=== PATIENT | male | born 1955 | race Caucasian/White ===

== ENCOUNTER 2025-05-05 11:32 | Outpatient (OUT) | payer MEDICARE, SELFPAY ==
--- OUTSIDE RECORDS SUMMARY | 2025-05-05 11:47 | XMS_ITS | Encounter Summary ---
Author Organization [facility] Address [address] [place] [address] Care Team Providers Care Tapering Machine Operator Name Role Phone Arsalan Díaz MD Primary Care Provider [phone] Maricarmen Jj APPLE SOLUTIONS CONSULTANT Unavailable [phone] Encounter Details Date Type Department Care Team (Late st Contact Info) Description 02/19/2024 Abstract [facility] [address] [place] [address] Arsalan Díaz MD [address] [place] [address] Social History Tobacco Use Types Packs/Day Years Used Date Smoking Tobacco: Every Day Cigars Passive Smoke Exposure: Never Smokeless Tobacco: Current Comments:Start smoking : 20 years ago Alcohol Use Standard Drinks/Week Comments Not Currently 0 (1 standard drink = 0.6 oz pure alcohol) caffeine intake : more than 4 cups per day Humiliation, Afraid, Rape, and Kick questionnair e Answer Date Recorded Within the last year, have y ou been afraid of your partner or ex-partner? No 06/11/2023 Within the last year, have y ou been humiliated or emotionally abused in other ways by your partner or ex-partner? No Within the last year, have y ou been kicked, hit, slapped, or otherwise physically hurt by your partner or ex-partner? No 06/11/2023 Within the last year, have y ou been raped or forced to have any kind of sexual activity by your partner or ex-partner? No 06/11/2023 Social Connection and Isolat ion Panel [NHANES] Answer Date Recorded In a typical week, how many times do you talk on the phone with family, friends, or neighbors? More than three times a week 06/11/2023 How often do you get togethe r with friends or relatives? More than three times a week 06/11/2023 How often do you attend chur or orthodoxy services? Patient declined 06/11/2023 Do you belong to any clubs o r organizations such as yazdanism groups, unions, fraSabrix or athletic groups, or school groups? No 06/11/2023 How often do you attend meet ings of the clubs or organizations you belong to? Patient declined 06/11/2023 Are you , , di vorced, , never , or living with a partner? 06/11/2023 AUDIT-C Answer Date Recorded Q1: How often do you have a drink containing alc ohol? Monthly or less 06/11/2023 Q2: How many drinks containi ng alcohol do you have on a typical day when you are drinking? 1 or 2 06/11/2023 Q3: How often do you have si x or more drinks on one occasion? Never 06/11/2023 Overall Financial Resource Strain (CARDIA) Answe r Date Recorded How hard is it for you to pa y for the very basics like food, housing, medical care, and heating? Not hard at all 06/11/2023 PHQ-2 Answer Date Recorded Patient Health Questionnaire-2 Score 0 05/09/2023 [facility] of Occupat ionmd Health - Occupational Stress Questionnaire Answer Date Recorded Do you feel stress - tense, restless, nervous, or anxious, or unable to sleep at night because your mind is troubled all the time - these days? Not at all 06/11/2023 Exercise Vital Sign Answer Date Recorde d On average, how many days pe r week do you engage in moderate to strenuous exercise (like a brisk walk)? Patient declined On average, how many minutes do you engage in exercise at this level? Patient declined 06/11/2023 Hunger Vital Sign Answer Date Recorded Worried About Running Out of Food in the Last Ye ar Not on file 06/11/2023 Within the past 12 months, t he food you bought just didn't last and you didn't have money to get more. Never true 06/11/2023 PRAPARE - Transportation Answer Date Re corded In the past 12 months, has l ack of transportation kept you from medical appointments or from getting medications? No 06/01 In the past 12 months, has l ack of transportation kept you from meetings, work, or from getting things needed for daily living? No 06/11/2023 Housing Stability Vital Sign Answer Jacek e Recorded In the last 12 months, was t here a time when you were not able to pay the mortgage or rent on time? No 06/11/2023 In the last 12 months, how many places have you lived? 1 06/11/2023 In the last 12 months, was t here a time when you did not have a steady place to sleep or slept in a jail (including now)? No 06/11/2023 Sex and Gender Information Value Date Recorded Sex Assigned at Male 05/08/2023 12:49 PM EDT Legal Sex Male 6:37 PM EDT Gender Identity Male 02/13/2023 6:37 PM EDT Sexual Orientation Straight 05/08/2023 12 :49 PM EDT documented as of this encounter Plan of Treatment Upcoming Encounters Date Type Department Care Team (Late st Contact Info) Description 05/18/2025 10:45 AM EDT Office Visit [facility] [address] [place] [address] Jared Linda DO [address] [place] [address] documented as of this encounter Visit Diagnoses Not on filedocumented in this encounter Care Teams Tapering Machine Operator Relationship Specialty Start Date End Date Arsalan Díaz MD [address] [place] [address] PCP - General Family Medicine 05/08/23 Maricarmen Jj APPLE SOLUTIONS CONSULTANT [address] [place] [address] Nurse Practitioner Family Medicine 04/14/25 documented as of this encounter
--- OUTSIDE RECORDS SUMMARY | 2025-05-05 11:47 | XMS_ITS | Encounter Summary ---
Author Organization [facility] Address [address] [place] [address] Care Team Providers Care Cushion Builder Name Role Phone Arsalan Díaz MD Primary Care Provider [phone] Maricarmen Jj NP Unavailable Reason for Visit * Reason Comments Med Refill Encounter Details Date Type Department Care Team (Late st Contact Info) Description 02/15/2025 Refill [facility] [address] [place] [phone] Shea Younger NP [address] [place] [address] Mixed hyperlipidemia (CMS/HCC) ; Generalized anxiety disorder (CMS/HCC) Social History Tobacco Use Types Packs/Day Years Used Date Smoking Tobacco: Some Days Cigars Passive Smoke Exposure: Never Smokeless Tobacco: Former Comments:Start smoking : 20 years ago Alcohol Use Standard Drinks/Week Comments Not Currently 1 (1 standard drink = 0.6 oz pure alcohol) caffeine intake : more than 4 cups per day B1300 Health Literacy Answer Date Recor ded How often do you need to hav e someone help you when you read instructions, pamphlets, or other written material from your doctor or pharmacy? Never 08/17/2024 Humiliation, Afraid, Rape, and Kick questionnair e [...] or ex-partner? No 06/11/2023 Social Connection and Isolation Panel [NHANES] A nswer Date Recorded In a typical week, how many times do you talk on the phone with family, friends, or neighbors? Three times a week 08/17/2024 How often do you get togethe r with friends or relatives? Three times a week 08/17/2024 How often do you attend chur or holiness services? Patient declined 08/17/2024 Do you belong to any clubs o r organizations such as adventist groups, unions, fraternal or athletic groups, or school groups? No 08/17/2024 How often do you attend meet ings of the clubs or organizations you belong to? Never 08/17/2024 Are you , , di vorced, , never , or living with a partner? 08/17/2024 AUDIT-C Answer Date Recorded Q1: How often do you have a drink containing alc ohol? 2-3 times a week 08/17/2024 Q2: How many drinks containi ng alcohol do you have on a typical day when you are drinking? 1 or 2 08/17/2024 Q3: How often do you have si x or more drinks on one occasion? Never 08/17/2024 Overall Financial Resource Strain (CARDIA) Answe r Date Recorded How hard is it for you to pa y for the very basics like food, housing, medical care, and heating? Not hard at all 08/17/2024 PHQ-2 Answer Date Recorded Patient Health Questionnaire-2 Score 0 08/18/2024 [facility] [place] of Occupat ional Health - Occupational Stress Questionnaire Answer Date Recorded Do you feel stress - tense, restless, nervous, or anxious, or unable to sleep at night because your mind is troubled all the time - these days? To some extent 08/17/2024 Exercise Vital Sign Answer Date Recorde d On average, how many days pe r week do you engage in moderate to strenuous exercise (like a brisk walk)? 3 days 08/17/2024 On average, how many minutes do you engage in exercise at this level? 60 min 08/17/2024 Hunger Vital Sign Answer Date Recorded Within the past 12 months, y ou worried that your food would run out before you got the money to buy more. Never true 08/17/20 24 Within the past 12 months, t he food you bought just didn't last and you didn't have money to get more. Never true 08/17/2024 PRAPARE - Transportation Answer Date Re corded In the past 12 months, has l ack of transportation kept you from medical appointments or from getting medications? No 08/02 In the past 12 months, has l ack of transportation kept you from meetings, work, or from getting things needed for daily living? No 08/17/2024 Housing Stability Vital Sign Answer Jacek e [...] place to sleep or slept in a retirement (including now)? No 06/11/2023 Housing Stability Vital Sign Answer Jacek e Recorded In the last 12 months, was t here a time when you were not able to pay the mortgage or rent on time? No 08/17/2024 Number of Times Moved in the Last Year Not on fi le 08/17/2024 At any time in the past 12 m [facility], were you homeless or living in a retirement (including now)? No 08/17/2024 Sex and Gender Information Value Date Recorded Sex Assigned at Male 05/08/2023 12:49 PM EDT Legal Sex Male 6:37 PM EDT Gender Identity Male 02/13/2023 6:37 PM EDT Sexual Orientation Straight 05/08/2023 12 :49 PM EDT documented as of this encounter Miscellaneous Notes * Telephone Encounter - AME VÁSQUEZ - 02/16/2025 8:17 AM EDT refused documented in this encounter Plan of Treatment Upcoming Encounters Date Type Department Care Team (Late st Contact Info) Description 05/18/2025 10:45 AM EDT Office Visit [facility] [address] [place] [address] Jared Linda, [address] [place] [address] documented as of this encounter Goals Goal Patient Goal Type Associated Problems Recent Progress Patient-Stated? Author Help patient manage antidepressant medication Care Plan Patient on antidepressant monitoring plan No Karely Mandujano MA Baseline PHQ-9 Care Plan Baseline PHQ-9 No Karely Mandujano MA documented as of this encounter Visit Diagnoses Diagnosis Mixed hyperlipidemia (CMS/HCC) Mixed hyperlipidemia Generalized anxiety disorder (CMS/HCC) Generalized anxiety disorder documented in this encounter Additional Health Concerns Active Problems Noted Date Diagnosed Date Patient on antidepressant monitoring plan 2023 Baseline PHQ-9 03/02/2024 Assessment Noted Time PHQ-9 Depression Total Score: 0 03/02/20 24 11:00 AM EDT documented as of this encounter Care Teams Cushion Builder Relationship Specialty Start Date End Date Arsalan Díaz MD [address] [place] [address] PCP - General Family Medicine 05/08/23 Maricarmen Jj NP [address] [place] [address] Nurse Practitioner Family Medicine 04/14/25 documented as of this encounter
--- OUTSIDE RECORDS SUMMARY | 2025-05-05 11:47 | XMS_ITS | Encounter Summary ---
Author Organization [facility] Address [address] [place] [address] Care Team Providers Care Management Assistant Name Role Phone Arsalan Díaz MD Primary Care Provider [phone] Maricarmen Jj UI DESIGNER Unavailable [phone] Encounter Details Date Type Department Care Team (Late st Contact Info) Description 04/19/2025 Abstract [facility] [address] [place] [address] Maricarmen Jj, RAIMUNDO [address] [place] [address] Social History Tobacco Use Types Packs/Day Years Used Date Smoking Tobacco: Former Cigars Q uit: 05/20/2024 Passive Smoke Exposure: Never Smokeless Tobacco: Former Comments:Start smoking : 20 years ago Alcohol Use Standard Drinks/Week Comments Not Currently 4 (1 standard drink = 0.6 oz pure alcohol) caffeine intake : more than 4 cups per day, Patient reports drinking bourbon 4x a week B1300 Health Literacy Answer Date Recor ded [...] week 08/17/2024 How often do you attend [facility] or confucianist services? Patient declined 08/17/2024 Do you belong to any clubs o r organizations such as congregation groups, unions, fraternal or athletic groups, or school groups? No 08/17/2024 How often do you attend meet ings of the clubs or organizations you belong to? Never 08/17/2024 Are you , , di vorced, , never , or living with a partner? 08/17/2024 AUDIT-C Answer Date Recorded Q1: How often do you have a drink containing alcohol? 4 or more times a week 04/19/2025 Q2: How many drinks containi ng alcohol do you have on a typical day when you are drinking? 1 or 2 Q3: How often do you have si x or more drinks on one occasion? Never 04/19/2025 Overall Financial Resource Strain (CARDIA) Answe r Date Recorded How hard is it for you to pa y for the very basics like food, housing, medical care, and heating? Not hard at all 08/17/2024 PHQ-2 Answer Date Recorded Patient Health Questionnaire-2 Score 0 04/19/2025 [facility] of Occupat ional Health - Occupational Stress [...] place to sleep or slept in a intermediate (including now)? No 06/11/2023 Housing Stability Vital Sign Answer Jacek e Recorded In the last 12 months, was t here a time when you were not able to pay the mortgage or rent on time? No 08/17/2024 Number of Times Moved in the Last Year Not on fi le 08/17/2024 At any time in the past 12 m [facility], were you homeless or living in a intermediate (including now)? No 08/17/2024 Sex and Gender Information Value Date Recorded Sex Assigned at Male 05/08/2023 12:49 PM EDT Legal Sex Male 6:37 PM EDT Gender Identity Male 02/13/2023 6:37 PM EDT Sexual Orientation Straight 05/08/2023 12 :49 PM EDT documented as of this encounter Functional Status * Audit-C Score Answer Date of Assessment Author 4 04/19/2025 10:30 AM EDT Roseanne Henry MA * Question Answer Date of Assessment Author Q1: How often do you have a drink containing alcohol? 4 or more times a week 04/19/2025 10:30 AM Roseanne Coyne MA Q2: How many drinks containing alcohol do you have on a typical day when you are drinking? 1 or 2 04/19/2025 10:30 AM Roseanne Coyne MA Q3: How often do you have six or more drinks on one occasion? Never 04/19/2025 10:30 AM Roseanne Coyne MA * Over the past 2 weeks, how often have you been bothered by any of the following problems? Question Answer Date of Assessment Author Little interest or pleasure in doing things Not at all 04/19/2025 10:30 AM Roseanne Coyne MA Feeling down, depressed, or hopeless Not at all 04/19/2025 10:30 AM Gabby Coyne MA Patient Health Questionnaire-2 Score 0 04/19/2025 10:30 AM Pk Coyne MA * Question Answer Date of Assessment Author Trouble falling or staying asleep, or sleeping too much Not at all 04/19/2025 10:30 AM Roseanne Montiel MA Feeling tired or having little energy Not at all 04/19/2025 10:30 AM Gabby Coyne MA Poor appetite or overeating Not at all 04/19/2025 10 :30 AM Roseanne Coyne MA Feeling bad about yourself - or that you are a failure or have let yourself or your family down Not at all 04/19/2025 10:30 AM Gabby Coyne MA Trouble concentrating on things, such as reading the newspaper or watching television Not at all 04/19/2025 10:30 AM Gabby Coyne MA Moving or speaking so slowly that other people could have noticed? Or the opposite - being so fidgety or restless that you have been moving around a lot more than usual. Not at all 04/19/2025 10:30 AM EDT Roseanne Schuler MA Thoughts that you would be better off or hurting yourself in some way Not at all 04/19/2025 10:30 AM EDT Karlee Nielsen MA Patient Health Questionnaire-9 Score 0 04/19/2025 10:30 AM EDT Pk Nielsen MA documented as of this encounter Plan of Treatment Upcoming Encounters Date Type Department Care Team (Late st Contact Info) Description 05/18/2025 10:45 AM EDT Office Visit [facility] [address] [place] [address] Jared Linda DO [address] [place] [address] documented as of this encounter Goals Goal Patient Goal Type Associated Problems Recent Progress Patient-Stated? Author Help patient manage antidepressant medication Care Plan Patient on antidepressant monitoring plan No Karely Mandujano MA Baseline PHQ-9 Care Plan Baseline PHQ-9 Karely Callaway MA documented as of this encounter Visit Diagnoses Not on filedocumented in this encounter Additional Health Concerns Active Problems Noted Date Diagnosed Date Patient on antidepressant monitoring plan 2023 Baseline PHQ-9 03/02/2024 Assessment Noted Time PHQ-9 Depression Total Score: 0 04/19/20 10:30 AM EDT documented as of this encounter Care Teams Management Assistant Relationship Specialty Start Date End Date Arsalan Díaz MD [address] [place] [address] PCP - General Family Medicine 05/08/23 Maricarmen Jj NP [address] [place] [address] Nurse Practitioner Family Medicine 04/14/25 documented as of this encounter
--- OUTSIDE RECORDS SUMMARY | 2025-05-05 11:47 | XMS_ITS | Patient Health Record ---
Author Organization [facility] Address [address] [place] [address] Care Team Providers Care Buckle Attacher Name Role Phone Arsalan Díaz Primary Care Provider Unavailabl e Allergies No Known Allergies Reason For Referral No Information Medications Medication SIG (Take, Route, Frequency, Duration) Notes Start Date End Date Status Paxil Active Immunizations Vaccine Route Administration Date Status Comme nts Flu Vaccine (Given in Past) Unspecified Unknown 06/03/2023 Administered Pneumonia ( Given in the Pas t) Unspecified Unknown 06/03/2023 Administered Social History Tobacco Use: Social History Observation Description Date Details (start date - stop date) Unknown Tobacco Use Question Answer Notes Are you a Uses tobacco in other forms Additional Findings: Tobacco User Cigar smoker Problems Problem Type SNOMED Code ICD Code Onset Dates Problem Status W/U Status Risk Notes Problem 28138632 Cigar smoker (F17.290) Active confirmed Problem 356433770744186 Obesity (BMI 30.0-34.9) (E66.9) Active confirmed Problem [id number] BMI 32.0-32.9,adult (Z68.32) Active confirmed Problem Vestibular disorder, unspecified laterality (H81.90) Active confirmed Plan Of Treatment No Information Insurance Providers Payer Name Payer Address Payer Phone Subscriber Number Group Number Insured Name Patient Relationship to Insured Coverage Start Date Coverage End Date [facility] [address] [address] [place] [phone] [id number] TRINA RENDON Self - patient is the insured Medical (General) History Medical History History ICD Code Vestibular disorder, unspecified lateral ity H81.90 Surgical History Surgery Date(Month/Year) appendectomy 12/1978 Hospitalization History Reason Date(Month/Year) surgeries
--- OUTSIDE RECORDS SUMMARY | 2025-05-05 11:47 | XMS_ITS | Encounter Summary ---
Author Organization [facility] Address [address] [place] [address] Care Team Providers Care Ground Crewman Name Role Phone Arsalan Díaz MD Primary Care Provider [phone] Maricarmen Jj NET DEVELOPMENT MANAGER Unavailable [phone] Encounter Details Date Type Department Care Team (Late st Contact Info) Description 04/02/2025 Abstract [facility] [address] [place] [phone] Arsalan Díaz MD [address] [place] [address] Social History Tobacco Use Types Packs/Day Years [...] How often do you attend chur or tenriism services? Patient declined 08/17/2024 Do you belong to any clubs o r organizations such as taoism groups, unions, fraKeoghs or athletic groups, or school groups? No [...] Recorded Patient Health Questionnaire-2 Score 0 08/18/2024 [facility] of Occupat ional Health - Occupational Stress [...] place to sleep or slept in a usp (including now)? No 06/11/2023 Housing Stability Vital Sign Answer Jacek e Recorded In the last 12 months, was t here a time when you were not able to pay the mortgage or rent on time? No 08/17/2024 Number of Times Moved in the Last Year Not on fi le 08/17/2024 At any time in the past 12 m [facility], were you homeless or living in a usp (including now)? No 08/17/2024 Sex and Gender [...] AM EDT Office Visit [facility] [address] [place] [address] Jared Linda, DO [address] [place] [address] documented as of this encounter Goals Goal [...] documented as of this encounter Care Teams Ground Crewman Relationship Specialty Start Date End Date Arsalan Díaz MD [address] [place] [address] PCP - General Family Medicine 05/08/23 Maricarmen Jj NP [address] [place] [address] Nurse Practitioner Family Medicine 04/14/25 documented as of this encounter
--- OUTSIDE RECORDS SUMMARY | 2025-05-05 11:47 | XMS_ITS | Encounter Summary ---
Author Organization [facility] Address [address] [place] [address] Care Team Providers Care Press Tender Star Signal Name Role Phone Arsalan Díaz MD Primary Care Provider [phone] Maricarmen Jj DIRECTOR OF COMMUNICATIONS Unavailable Reason for Visit * Reason Comments Med Refill Encounter Details Date Type Department Care Team (Late st Contact Info) Description 02/15/2025 Refill [facility] [address] [place] [address] Arsalan Díaz MD [address] [place] [address] Vertigo of central origin; Dizziness and giddiness Social History Tobacco Use Types Packs/Day Years [...] How often do you attend chur or shinto services? Patient declined 08/17/2024 Do you belong to any clubs o r organizations such as latter day groups, unions, fraternal or athletic groups, or [...] Recorded Patient Health Questionnaire-2 Score 0 08/18/2024 [facility] of Occupat ional Health - Occupational Stress [...] place to sleep or slept in a nursing home (including now)? No 06/11/2023 Housing Stability Vital Sign Answer Jacek e Recorded In the last 12 months, was t here a time when you were not able to pay the mortgage or rent on time? No 08/17/2024 Number of Times Moved in the Last Year Not on fi le 08/17/2024 At any time in the past 12 m [facility], were you homeless or living in a nursing home (including now)? No 08/17/2024 Sex and Gender Information Value Date Recorded Sex Assigned at Male 05/08/2023 12:49 PM EDT Legal Sex Male 6:37 PM EDT Gender Identity Male 02/13/2023 6:37 PM EDT Sexual Orientation Straight 05/08/2023 12 :49 PM EDT documented as of this encounter Miscellaneous Notes * Telephone Encounter - AME VÁSQUEZ - 02/15/2025 4:10 PM EDT Refills BILLY NOV documented in this encounter Plan of Treatment Upcoming Encounters Date Type Department Care Team (Late st Contact Info) Description 05/18/2025 10:45 AM EDT Office Visit [facility] [address] [place] [address] Jared Linda, [address] [place] [place] [address] documented as of this encounter Goals Goal Patient Goal Type Associated Problems Recent Progress Patient-Stated? Author Help patient manage antidepressant medication Care Plan Patient on antidepressant monitoring plan No Karely Mandujano MA Baseline PHQ-9 Care Plan Baseline PHQ-9 No Karely Mandujano MA documented as of this encounter Visit Diagnoses Diagnosis Vertigo of central origin Dizziness and giddiness documented in this encounter Additional Health Concerns Active Problems Noted Date Diagnosed Date Patient on antidepressant monitoring plan 2023 Baseline PHQ-9 03/02/2024 Assessment Noted Time PHQ-9 Depression Total Score: 0 03/02/20 24 11:00 AM EDT documented as of this encounter Care Teams Press Tender Star Signal Relationship Specialty Start Date End Date Arsalan Díaz MD [address] [place] [address] PCP - General Family Medicine 05/08/23 Maricarmen Jj NP [address] [place] [address] Nurse Practitioner Family Medicine 04/14/25 documented as of this encounter
--- OUTSIDE RECORDS SUMMARY | 2025-05-05 11:48 | XMS_ITS | Clinical Summary ---
Author Organization [facility] Address [address] [place] [address] Care Team Providers Care Installer Molding And Trim Name Role Phone Arsalan Díaz MD Primary Care Provider [phone] Jared Linda DO Unavailable [phone] Allergies No known active allergies Medications atorvastatin 20 MG Tab tablet Take 1 tablet by mouth daily. 7 Active amitriptyline 10 MG Tab tablet Take 20 mg by mouth daily. Active magnesium oxide 400 MG TabIndications:V estibular migraine Take 1 tablet by mouth 2 times daily. For migraine prevention. 60 tablet 11 8 Active Desvenlafaxine Succinate 50 MG Tab SR 24 HRIndications:In tractable chronic migraine without aura and without status migrainosus Take 1 tablet by mouth daily. 90 tablet 3 8 Active Active Problems Problem Noted Date Diagnosed Date Headache, new daily persistent (NDPH) 12/31/2017 Weakness of neck 12/31/2017 Poor posture 12/31/2017 Obesity: body mass index of 30.0-34.9 12/11/2017 Vestibular migraine 12/11/2017 Dizzy spells 12/11/2017 Migraine aura without headache (migraine equival ents) 12/11/2017 Intractable chronic migraine without aura and without status migrainosus 12/11/2017 Social History Tobacco Use Types Packs/Day Years Used Date Smoking Tobacco: Never Assessed Sex and Gender Information Value Date Recorded Sex Assigned at Not on file Legal Sex Male 11:16 AM EDT Gender Identity Male 09/19/2017 11:22 AM EDT Sexual Orientation Not on file Last Filed Vital Signs Vital Sign Reading Time Taken Comments Blood Pressure 127/83 09/12/2018 3:46 PM EDT Pulse 77 09/12/2018 3:46 PM EDT Temperature - - Respiratory Rate - - Oxygen Saturation - - Inhaled Oxygen Concentration - - Weight 100.8 kg (222 lb 3.2 oz) 09/12/2018 3:46 PM EDT Height 182.2 cm (5' 11.75 ) 09/12/2018 3:46 PM E DT Verbal Body Mass Index 30.35 09/12/2018 3:46 PM EDT Plan of Treatment Health Maintenance Due Date Last Done Comments HEPATITIS C VIRUS SCREENING 1955 TETANUS 1955 TDAP (ADULT) 1974 LIPID SCREENING 1995 COLORECTAL CANCER SCREENING DISCUSSION 2000 ZOSTER (SHINGLES) VACCINE (1 of 2) 2005 PROSTATE CANCER SCREENING DISCUSSION 2010 PNEUMOCOCCAL VACCINE SERIES (2 of 2 - PPSV23) 07/07/2019 07/07/2018 ABDOMINAL AORTIC ANEURYSM HIGH RISK SCREEN 2020 COVID-19 VACCINE (2023-2 5 season) 2024 INFLUENZA VACCINE (Season Ended) 2025 09/16/2017, 11/02/2015, 11/02/2015 RSV VACCINE (1 - 1-dose 75+ series) 2030 HEP B VACCINE Aged Out No longer elig ible based on patient's age to complete this topic Insurance MEDICARE [employer] PPO MEDICARE [employer] PPO Care Teams Installer Molding And Trim Relationship Specialty Start Date End Date Arsalan Díaz MD [address] [place] [address] PCP - General Family Medicine 09/21/17 Jared Linda DO [address] [place] [address] Consulting Physician Otolaryngology 12/11/17
--- OUTSIDE RECORDS SUMMARY | 2025-05-05 11:48 | XMS_ITS | Encounter Summary ---
Author Organization [facility] Address [address] [place] [address] Care Team Providers Care Platen Press Operator Apprentice Name Role Phone Arsalan Díaz MD Primary Care Provider [phone] Maricarmen Jj ELECTRICAL LOGGER Unavailable Encounter Details Date Type Department Care Team (Late st Contact Info) Description 10/29/2023 Orders Only [facility] [address] [place] [address] Arsalan Díaz MD [address] [place] [address] Social History Tobacco Use Types Packs/Day Years [...] How often do you attend chur or yazdanism services? Patient declined 06/11/2023 Do you belong to any clubs o r organizations such as mandaeism groups, unions, fraGraceway Ph[employer] or athletic groups, or school groups? No [...] Recorded Patient Health Questionnaire-2 Score 0 05/09/2023 [facility] - Occupational Stress Questionnaire Answer Date [...] in a retirement (including now)? No 06/11/2023 Sex and Gender [...] Office Visit [facility] [address] [place] [address] Jared Linda DO [address] [place] [place] [address] documented as of this encounter Procedures Procedure Name Priority Date/Time Associated Diagnosis Comments CBC WITH AUTO DIFFERENTIAL Routine 10/28/2023 12:29 PM EST documented in this encounter Results * CBC auto differential (10/28/2023 12:29 PM EST) Blood Venous blood specimen / Unknown us Arsalan Díaz MD LAB BLOOD ORDERABLES Final Res ult documented in this encounter Visit Diagnoses Not on filedocumented in this encounter Care Teams Platen Press Operator Apprentice Relationship Specialty Start Date End Date Arsalan Díaz MD [address] [place] [address] PCP - General Family Medicine 05/08/23 Maricarmen Jj NP [address] [place] [address] Nurse Practitioner Family Medicine 04/14/25 documented as of this encounter
--- OUTSIDE RECORDS SUMMARY | 2025-05-05 11:48 | XMS_ITS | Encounter Summary ---
Author Organization [facility] Address [address] [facility] [place] [address] Care Team Providers Care Industrial Technology Teacher Name Role Phone Arsalan Díaz MD Primary Care Provider [phone] Maricarmen Jj SYSTEMS OPERATOR Unavailable [phone] Reason for Visit * Reason Comments Med Refill Encounter Details Date Type Department Care Team (Late st Contact Info) Description 05/18/2023 Refill [facility] [address] [place] [address] Shea Younger NP [address] [place] [address] Social History Tobacco Use Types Packs/Day Years Used Date Smoking Tobacco: Never Passive Smoke Exposure: Never Smokeless Tobacco: Never Alcohol Use Standard Drinks/Week Comments Yes 0 (1 standard drink = 0.6 oz pur e alcohol) PHQ-2 Answer Date Recorded Patient Health Questionnaire-2 Score 0 05/09/2023 Sex and Gender Information Value Date Recorded Sex Assigned at Male 05/08/2023 12:49 PM EDT Legal Sex Male 6:37 PM EDT Gender Identity Male 02/13/2023 6:37 PM EDT Sexual Orientation Straight 05/08/2023 12 :49 PM EDT COVID-19 Exposure Response Date Recorded In the last 10 days, have yo u been in contact with someone who was confirmed or suspected to have Coronavirus/COVID-19? No / Unsure 05/09/2023 8:55 AM EDT documented as of this encounter Plan of Treatment Upcoming Encounters Date Type Department Care Team (Late st Contact Info) Description 05/18/2025 10:45 AM EDT Office Visit [facility] [address] [place] [address] Jared Linda, [address] [place] [address] documented as of this encounter Visit Diagnoses Not on filedocumented in this encounter Care Teams Industrial Technology Teacher Relationship Specialty Start Date End Date Arsalan Díaz MD [address] [place] [address] PCP - General Family Medicine 05/08/23 Maricarmen Jj SYSTEMS OPERATOR [address] [place] [address] Nurse Practitioner Family Medicine 04/14/25 documented as of this encounter
--- OUTSIDE RECORDS SUMMARY | 2025-05-05 11:48 | XMS_ITS | Encounter Summary ---
Author Organization [facility] Address [address] [place] [address] Phone Care Team Providers Care Certified Prosthetist/Orthotist Name Role Phone Arsalan Díaz MD Primary Care Provider [phone] Encounter Details Date Type Department Care Team (Late st Contact Info) Description 10/20/2023 Scanned Document [place] [address] [place] [phone] Scanning, Generic Provider Social History Tobacco Use Types Packs/Day Years Used Date Smoking Tobacco: Never Assessed Sex and Gender Information Value Date Recorded Sex Assigned at Not on file Legal Sex Male 1:23 PM EDT Gender Identity Not on file Sexual Orientation Not on file documented as of this encounter Plan of Treatment Scheduled Orders Name Type Priority Associated Diagnoses Orde r Schedule ULTRASOUND - ONBASE SCAN Imaging Ordered: 10/20/2023 documented as of this encounter Visit Diagnoses Not on filedocumented in this encounter Care Teams Certified Prosthetist/Orthotist Relationship Specialty Start Date End Date Arsalan Díaz MD [address] [place] [address] PCP - General 07/22/23 documented as of this encounter
--- OUTSIDE RECORDS SUMMARY | 2025-05-05 11:48 | XMS_ITS | Clinical Summary ---
Author Organization [facility] Address [address] [place] [address] Phone Care Team Providers Care Housekeeper Nanny Name Role Phone Arsalan Díaz MD Primary Care Provider Allergies Active Allergy Reactions Criticality Noted Date Comments Fentanyl Hallucinations 01/10/2024 Medications atorvastatin (Lipitor) 40 mg tablet Take 1 tablet (40 mg) by mouth once daily. Active diazePAM (Valium) 5 mg tablet Take 1 tablet (5 mg) by mouth every 8 hours if needed for anxiety. As needed/direc gerard. Active PARoxetine (Paxil) 40 mg tablet Take 1 tablet (40 mg) by mouth once daily in the morning. Active tamsulosin (Flomax) 0.4 mg 24 hr capsule Take 1 capsule (0.4 mg) by mouth once daily. Active Active Problems Problem Noted Date Diagnosed Date Hyperlipidemia 12/12/2023 LBBB (left bundle branch block) 12/12/2023 Cigar smoker 12/12/2023 Social History Tobacco Use Types Packs/Day Years Used Date Smoking Tobacco: Former Cigarettes Smokeless Tobacco: Never Alcohol Use Standard Drinks/Week Comments Yes 0 (1 standard drink = 0.6 oz pur e alcohol) rarely Sex and Gender Information Value Date Recorded Sex Assigned at Not on file Legal Sex Male 1:23 PM EDT Gender Identity Not on file Sexual Orientation Not on file Last Filed Vital Signs Vital Sign Reading Time Taken Comments Blood Pressure 90/76 01/10/2024 3:13 PM EST Pulse 86 01/10/2024 3:13 PM EST Temperature - - Respiratory Rate - - Oxygen Saturation - - Inhaled Oxygen Concentration - - Weight 81.6 kg (180 lb) 01/10/2024 3:13 PM EST Height 182.9 cm (6') 01/10/2024 3:13 PM EST Body Mass Index 24.41 01/10/2024 3:13 PM EST Plan of Treatment Health Maintenance Due Date Last Done Comments CT Colonography 1955 Colonoscopy 1955 Colorectal Cancer Screening 1955 FIT-DNA (Cologuard) 1955 FIT 1955 Lipid Panel 1955 Medicare Annual Wellness Visit (AWV) 1955 Sigmoidoscopy 1955 Diabetes Screening 1973 Hepatitis C Screening 1973 Zoster Vaccines (1 of 2) 1974 RSV High Risk: (Elderly (60+) or Population) (1 - Risk 60-74 years 1-dose series) 2015 COVID-19 Vaccine ( season) 2024 10/22/2021, 03/06/2021, 02/07/2021 Influenza Vaccine (Season Ended) 2025 06/03/2023, 11/02/2022, 10/04/2021, Additional history exists DTaP/Tdap/Td Vaccines (2 - Td or Tdap) 11/02/2032 11/02/2022 Pneumococcal Vaccine Completed 06/03/2023, 10/17/2020, 07/07/2018 HIB Vaccines Aged Out No longer eligi ble based on patient's age to complete this topic HPV Vaccines Aged Out No longer eligi ble based on patient's age to complete this topic Hepatitis A Vaccines Aged Out No long er eligible based on patient's age to complete this topic Hepatitis B Vaccines Aged Out No long er eligible based on patient's age to complete this topic IPV Vaccines Aged Out No longer eligi ble based on patient's age to complete this topic Meningococcal Vaccine Aged Out No veda dhiraj eligible based on patient's age to complete this topic Rotavirus Vaccines Aged Out No longer eligible based on patient's age to complete this topic Insurance [employer] MEDICARE [employer] MEDICARE Care Teams Housekeeper Nanny Relationship Specialty Start Date End Date Arsalan Díaz MD [address] [place] [phone] PCP - General 07/22/23
--- OUTSIDE RECORDS SUMMARY | 2025-05-05 11:48 | XMS_ITS | Encounter Summary ---
Author Organization [facility] Address [address] [place] [address] Phone Care Team Providers Care Family Centered Specialist Name Role Phone Arsalan Díaz MD Primary Care Provider Encounter Details Date Type Department Care Team (Late st Contact Info) Description 07/22/2023 Scanned Document [facility] [address] [place] [address] Conversion, Onbase Social History Tobacco Use Types Packs/Day Years Used Date Smoking Tobacco: Never Assessed Sex and Gender Information Value Date Recorded Sex Assigned at Not on file Legal Sex Male 1:23 PM EDT Gender Identity Not on file Sexual Orientation Not on file documented as of this encounter Functional Status * Little interest or pleasure in doing things Answer Date of Assessment Author Not at all 07/22/2023 9:52 AM EDT Conversio nFaizanscriphillip Touchworks Vitals documented as of this encounter Plan of Treatment Not on file documented as of this encounter Procedures Procedure Name Priority Date/Time Associated Diagnosis Comments ELECTROCARDIOGRAM RHYTHM STRIP 07/22/2023 documented in this encounter Results * ELECTROCARDIOGRAM RHYTHM STRIP (07/22/2023) Narrative 07/22/2023 Ordered by an unspecified provider. us Onbase Conversion ECG ORDERABLES Final Result documented in this encounter Visit Diagnoses Not on filedocumented in this encounter Care Teams Family Centered Specialist Relationship Specialty Start Date End Date Arsalan Díaz MD [address] [place] [address] PCP - General 07/22/23 documented as of this encounter
--- OUTSIDE RECORDS SUMMARY | 2025-05-05 11:48 | XMS_ITS ---
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 Past Treatment and Therapy Plans ONCOLOGY REGIMEN Plan Name Start Date Discontinue Date Treatment Medications Discontinue Reason Plan Provider Cycles CLADRIBINE 0.14 D1-5 - Q28D 5 12/18/2016 cladribine iv piggyback (LEUSTATIN) Other Levy Johnson DO 1 of 6 cycles started
--- OUTSIDE RECORDS SUMMARY | 2025-05-05 11:48 | XMS_ITS | Encounter Summary ---
Author Organization [facility] Address [address] [place] [address] Care Team Providers Care Transmission Builder Name Role Phone Arsalan Díaz MD Primary Care Provider [phone] Maricarmen Jj BUSINESS MANAGEMENT ANALYST Unavailable [phone] Encounter Details Date Type Department Care Team (Late st Contact Info) Description 10/28/2023 Orders Only [facility] [address] [place] [address] Karely Manduajno MA Social History Tobacco Use Types Packs/Day Years [...] 06/11/2023 How often do you attend chur ch or hoahaoism services? Patient declined 06/11/2023 Do you belong to any clubs o r organizations such as restoration groups, unions, fraternal or athletic groups, or [...] Recorded Patient Health Questionnaire-2 Score 0 05/09/2023 [facility] Occupat ional Health - Occupational Stress [...] EDT Office Visit [facility] [address] [place] [address] Jared Linda DO [address] [place] [address] documented as of this encounter Procedures Procedure Name Priority Date/Time Associated Diagnosis Comments COMPREHENSIVE METABOLIC PANEL Routine 10/28/2023 4:01 PM EST documented in this encounter Results * Comprehensive metabolic panel (10/28/2023 4:01 PM EST) Blood Venous blood specimen / Unknown us Arsalan Díaz MD LAB BLOOD ORDERABLES Final Res ult documented in this encounter Visit Diagnoses Not on filedocumented in this encounter Care Teams Transmission Builder Relationship Specialty Start Date End Date Arsalan Díaz MD [address] [place] [address] PCP - General Family Medicine 05/08/23 Maricarmen Jj NP [address] [place] [address] Nurse Practitioner Family Medicine 04/14/25 documented as of this encounter
--- OUTSIDE RECORDS SUMMARY | 2025-05-05 11:48 | XMS_ITS | Encounter Summary ---
Author Organization [facility] Address [address] [place] [address] Care Team Providers Care Whizzer Hand Name Role Phone Arsalan Díaz MD Primary Care Provider Maricarmen Jj BOX PRESS OPERATOR Unavailable Encounter Details Date Type Department Care Team (Late st Contact Info) Description 09/24/2023 Abstract [facility] [address] [place] [address] Arsalan Díaz MD [address] [place] [address] Social History Tobacco Use Types Packs/Day Years [...] How often do you attend chur or evangelical services? Patient declined 06/11/2023 Do you belong to any clubs o r organizations such as alevism groups, unions, [email or web address] or athletic groups, or school groups? No [...] Recorded Patient Health Questionnaire-2 Score 0 05/09/2023 [facility] ion[facility] Health - Occupational Stress Questionnaire Answer Date [...] place to sleep or slept in a long term (including now)? No 06/11/2023 Sex and Gender [...] suspected to have Coronavirus/COVID-19? No / Unsure 09/24/2023 8:36 AM EDT documented as of this encounter Plan of Treatment Upcoming Encounters Date Type Department Care Team (Late st Contact Info) Description 05/18/2025 10:45 AM EDT Office Visit [facility] [address] [place] [address] Jared Linda DO [address] [place] [address] documented as of this encounter Visit Diagnoses Not on filedocumented in this encounter Care Teams Whizzer Hand Relationship Specialty Start Date End Date Arsalan Díaz MD [address] [place] [address] PCP - General Family Medicine 05/08/23 Maricarmen Jj NP [address] [place] [address] Nurse Practitioner Family Medicine 04/14/25 documented as of this encounter
--- OUTSIDE RECORDS SUMMARY | 2025-05-05 11:48 | XMS_ITS | Encounter Summary ---
Author Organization [facility] Address [address] [place] [address] Phone Care Team Providers Care Bariatric Surgeon Name Role Phone Arsalan Díaz MD Primary Care Provider [phone] Encounter Details Date Type Department Care Team (Late st Contact Info) Description 10/19/2023 Scanned Document [facility] [address] [place] [phone] Scanning, Generic Provider Social History Tobacco Use Types Packs/Day Years Used Date Smoking Tobacco: Never Assessed Sex and Gender Information Value Date Recorded Sex Assigned at Not on file Legal Sex Male 1:23 PM EDT Gender Identity Not on file Sexual Orientation Not on file documented as of this encounter Plan of Treatment Not on file documented as of this encounter Visit Diagnoses Not on filedocumented in this encounter Care Teams Bariatric Surgeon Relationship Specialty Start Date End Date Arsalan Díaz MD [address] [place] [address] PCP - General 07/22/23 documented as of this encounter
--- OUTSIDE RECORDS SUMMARY | 2025-05-05 11:48 | XMS_ITS | Clinical Summary ---
Author Organization [facility] Address [address] [place], [place] [address] Care Team Providers Care Healthcare Prof Name Role Phone Arsalan Díaz MD Primary Care Provider [phone] Allergies No known active allergies Medications atorvastatin (LIPITOR) 20 mg tablet Take 20 mg by mouth once daily. 12/31/2016 Active CALCIUM CARBONATE (CALCIUM 600 ORAL) Take 600 mg by mouth once daily. Active magnesium oxide (MAG-OX) 400 mg tablet Take 400 mg by mouth once daily. Active ferrous sulfate (IRON) 325 mg (65 mg iron) tablet Take 325 mg by mouth daily with breakfast. Active Coenzyme Q10 (CO Q-10) 400 mg cap Take 400 mg by mouth once daily. Active PARoxetine (PAXIL) 40 mg tablet Take 40 mg by mouth once daily. 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 Thrombocytopenia 10/01/2014 Immunizations Immunization Administration Dates Next Due influenza (IIV3) vaccine, tr ivalent, PF, intradermal (FLUZONE INTRADERMAL) 09/16/2017 influenza (IIV4) vaccine, ag e 6 mo - 64 yr, quadrivalent, PF (AFLURIA, FLUARIX, FLULAVAL, FLUZONE) 11/02/2015 pneumococcal conjugate (PCV1 3) vaccine, 13 valent (PREVNAR 13) 07/07/2018 Social History Tobacco Use Types Packs/Day Years Used Date Smoking Tobacco: Former Cigarettes Q uit: 01/10/2005 Smokeless Tobacco: Never Comments:still does smoke ci gars Alcohol Use Standard Drinks/Week Comments No 0 (1 standard drink = 0.6 oz pur e alcohol) Area Deprivation Index Answer Date Silverio rded National Score (1-100), lower number is lower ri sk Not on file 11/09/2020 State Score (1-10), lower number is lower risk N ot on file 11/09/2020 Data from: https://www.neighborhoodatlas.medicine.[facility]/. Last address used for calculation Not on file 11/09/2020 Sex and Gender Information Value Date Recorded Sex Assigned at Not on file Legal Sex Male 11:40 AM EDT Gender Identity Not on file Sexual Orientation Not on file Last Filed Vital Signs Vital Sign Reading Time Taken Comments Blood Pressure 123/99 02/02/2019 11:41 AM EST Pulse 78 02/02/2019 11:41 AM EST Temperature 36.5 C (97.7 F) 02/02/2019 11:41 AM EST Respiratory Rate 18 02/02/2019 11:4 1 AM EST Oxygen Saturation 95% 02/02/2019 11: 41 AM EST Inhaled Oxygen Concentration - - Weight 105.6 kg (232 lb 12.8 oz) 2018 11:41 AM EST Height 182.9 cm (6' 0.01 ) 02/02/2019 1 1:41 AM EST Body Mass Index 31.57 02/02/2019 11:41 AM EST Plan of Treatment Health Maintenance Due Date Last Done Comments Abdominal Aortic Aneurysm Screening 1955 Anxiety Screening 1973 Depression Screening 1973 Hepatitis C Screening 1973 DTaP,Tdap,Td Vaccine (1 - Tdap) [address] Colonography 2000 Cologuard (FIT-DNA) 2000 Colonoscopy 2000 Colorectal Cancer Screening 2000 Fecal Occult Blood 2000 Sigmoidoscopy 2000 Shingrix Vaccine (1 of 2) 2005 Pneumococcal Vaccine: 50+ (2 of 2 - PPSV23) 07/07/2019 07/07/2018 Diabetes Screening 02/02/2022 02/02/2019, 0 02/03/2018, 07/27/2015 Covid-19 Vaccine ( season) 2024 Advance Directive Discussion 12/02/2024 Influenza Vaccine (Season Ended) 2025 09/16/20 17, 11/02/2015 RSV Vaccine (1 - 1-dose 75+ series) 2030 Procedures Procedure Name Priority Date/Time Associated Diagnosis Comments COMPREHENSIVE METABOLIC PANEL Routine 02/02/2019 10:45 AM EST Hairy cell leukemia, in relapse (HCC) Thrombocytopenia (HCC) from Last 3 Months or Most Recently Relevant to Health Maintenance Results * (ABNORMAL) COMP METABOLIC PANEL (02/02/2019 10:45 AM EST) Protein, Total 6.6 6.3 - 8.0 g/dL 02/02/2019 11:12 AM EST [facility] Albumin 4.4 3.9 - 4.9 g/dL 02/02/2019 11:12 AM [facility] Calcium 9.6 8.5 - 10.2 mg/dL 02/02/2019 11:12 AM [facility] Bilirubin, Total 0.7 0.2 - 1.3 mg/dL 02/02/2019 11:12 AM [facility] Alkaline Phosphatase 49 38 - 113 U/L 02/02/2019 11:12 AM [facility] AST 15 14 - 40 U/L 02/02/2019 11:12 AM [facility] Glucose 84 74 - 99 mg/dL 02/02/2019 11:12 AM [facility] BUN 18 9 - 24 mg/dL 02/02/2019 11:12 AM [facility] Creatinine 0.84 0.73 - 1.22 mg/dL 02/02/2019 11:12 AM [facility] Sodium 142 136 - 144 mmol/L 02/02/2019 11:12 AM [facility] Potassium 4.2 3.7 - 5.1 mmol/L 02/02/2019 11:12 AM [facility] Chloride 108(H) 97 - 105 mmol/L 02/02/2019 11:12 AM [facility] CO2 24 22 - 30 mmol/L 02/02/2019 11:12 AM [facility] Anion Gap 10 9 - 18 mmol/L 02/02/2019 11:12 AM [facility] ALT 15 10 - 54 U/L 02/02/2019 11:12 AM [facility] eGFR- >60 02/02/2019 11:12 AM [facility] eGFR-All Other Races >60 . 02/02/2019 11:12 AM [facility] Comment: eGFR (Estimated GFR) Units of measure: mL/min/1.73 meters squared eGFR is derived from the reexpressed MDRD Study equation using the following parameters: serum creatinine, age, gender and race. The creatinine assay has been calibrated to be traceable to IDMS. An eGFR <60 mL/min/1.73m2 for >3 months is consistent with chronic kidney disease. Refer to KDOQI guidelines for clinical interpretation. In patients with unstable renal function, e.g. those with acute kidney injury, the eGFR may not accurately reflect actual GFR. Blood specimen (specimen) 02/02/2019 10:45 AM EST 02/02/2019 10:47 AM EST Mary Kauffman LIABILITY CLAIMS EXAMINER.[employer] Final Re sult [address] [address] [facility] [address] [place], [place] from Last 3 Months or Most Recently Relevant to Health Maintenance Insurance [employer] MEDICARE Care Teams Healthcare Prof Relationship Specialty Start Date End Date Arsalan Díaz MD [address] [place] [address] PCP - General Family Medicine 09/28/14
--- OUTSIDE RECORDS SUMMARY | 2025-05-05 11:48 | XMS_ITS | Encounter Summary ---
Author Organization [facility] Address [address] [place] [address] Phone Care Team Providers Care Cnc Operator Programmer Name Role Phone Arsalan Díaz MD Primary Care Provider [phone] Encounter Details Date Type Department Care Team (Late st Contact Info) Description 10/22/2023 Scanned Document [facility] [address] Virtual [place] [id number] Scanning, Generic Provider Social History Tobacco Use [...] on filedocumented in this encounter Care Teams Cnc Operator Programmer Relationship Specialty Start Date End Date Arsalan Díaz MD [address] [place] [address] PCP - General 07/22/23 documented as of this encounter
--- OUTSIDE RECORDS SUMMARY | 2025-05-05 11:48 | XMS_ITS | Encounter Summary ---
Author Organization [facility] Address [address] [place] [address] Care Team Providers Care Sheriff Sergeant Name Role Phone Arsalan Díaz MD Primary Care Provider Maricarmen Jj RETAIL GREETING CARD MERCHANDISER Unavailable Encounter Details Date Type Department Care Team (Late st Contact Info) Description 11/04/2023 Abstract [facility] [address] [place] [phone] Audrey Scruggs MA Social History Tobacco Use Types Packs/Day [...] often do you attend chur ch or mandaen services? Patient declined 06/11/2023 Do you belong to any clubs o r organizations such as zoroastrian groups, unions, fraternal or athletic groups, or [...] Recorded Patient Health Questionnaire-2 Score 0 05/09/2023 [facility] - Occupational [...] place to sleep or slept in a snf (including now)? No 06/11/2023 Sex and Gender [...] suspected to have Coronavirus/COVID-19? No / Unsure 11/04/2023 3:42 PM EST documented as of this encounter Plan of Treatment Upcoming Encounters Date Type Department Care Team (Late st Contact Info) Description 05/18/2025 10:45 AM EDT Office Visit [facility] [address] [place] [phone] Jared Linda DO [address] [place] [address] documented as of this encounter Visit Diagnoses Not on filedocumented in this encounter Care Teams Sheriff Sergeant Relationship Specialty Start Date End Date Arsalan Díaz MD [address] [place] [address] PCP - General Family Medicine 05/08/23 Maricarmen Jj NP [address] [place] [address] Nurse Practitioner Family Medicine 04/14/25 documented as of this encounter
--- OUTSIDE RECORDS SUMMARY | 2025-05-05 11:48 | XMS_ITS | Encounter Summary ---
Author Organization [facility] Address [address] [place] [address] Care Team Providers Care Railroad Engineer Name Role Phone Arsalan Díaz MD Primary Care Provider [phone] Source Comments In the event this information is protected by the Federal Confidentiality of Alcohol and Drug AbusePatient Records regulations: The Federal rules restrict any use of the information to criminally investigate or prosecute any alcohol or drug abuse patient.[facility] Encounter Details Date Type Department Care Team (Late st Contact Info) Description 2020 [place] [address] Provider, [facility] Medicare Coverage of Physical Exams Social History Tobacco Use Types Packs/Day Years Used Date Smoking Tobacco: Former Cigarettes Q uit: 01/10/2005 Smokeless Tobacco: Never Comments:still does smoke ci gars Alcohol Use Standard Drinks/Week Comments No 0 (1 standard drink = 0.6 oz pur e alcohol) Sex and Gender Information Value Date Recorded Sex Assigned at Not on file Legal Sex Male 11:40 AM EDT Gender Identity Not on file Sexual Orientation Not on file documented as of this encounter Functional Status * Are you deaf or do you have serious difficulty hearing? Answer Date of Assessment Author No 10/01/2014 12:50 PM EDT Ra keegan Edmonds * Are you blind or do you have serious difficulty seeing, even when wearing glasses? Answer Date of Assessment Author No 10/01/2014 12:50 PM EDT Ra keegan Edmonds * Do you have serious difficulty walking or climbing stairs? Answer Date of Assessment Author No 10/01/2014 12:50 PM EDT Ra keegan Edmonds * Do you have difficulty dressing or bathing? Answer Date of Assessment Author No 10/01/2014 12:50 PM EDT Ra keegan Edmonds * Because of a physical, mental, or emotional condition, do you have difficulty doing errands alone such as visiting a doctor's office or shopping? Answer Date of Assessment Author No 10/01/2014 12:50 PM EDT Ra keegan Edmonds documented as of this encounter Mental Status * Because of a physical, mental, or emotional condition, do you have serious difficulty concentrating, remembering, or making decisions? Answer Entry Date Author No 10/01/2014 12:50 PM EDT Ra keegan Edmonds documented in this encounter Plan of Treatment Not on file documented as of this encounter Visit Diagnoses Not on filedocumented in this encounter Care Teams Railroad Engineer Relationship Specialty Start Date End Date Arsalan Díaz MD [address] [place] [address] PCP - General Family Medicine 09/28/14 documented as of this encounter
--- OUTSIDE RECORDS SUMMARY | 2025-05-05 11:48 | XMS_ITS | Encounter Summary ---
Author Organization [facility] Address [address] [place] [address] Care Team Providers Care Naturopathic Doctor Name Role Phone Arsalan Díaz MD Primary Care Provider [phone] Source Comments In the event this information is protected by the Federal Confidentiality of Alcohol and Drug AbusePatient Records regulations: The Federal rules restrict any use of the information to criminally investigate or prosecute any alcohol or drug abuse patient.[facility] Encounter Details Date Type Department Care Team (Late st Contact Info) Description 06/06/2017 Get Medical Advice Neurology [address] [place] [id number] Jamal Jimenez MD [address] [place] [address] RE: Medication Question (Not Renewal) Social History Tobacco Use Types Packs/Day Years [...] on filedocumented in this encounter Care Teams Naturopathic Doctor Relationship Specialty Start Date End Date Arsalan Díaz MD [address] [place] [address] PCP - General Family Medicine 09/28/14 documented as of this encounter
--- OUTSIDE RECORDS SUMMARY | 2025-05-05 11:48 | XMS_ITS | Encounter Summary ---
Author Organization [facility] Address [address] [place] [address] Phone Care Team Providers Care Full Charge Bookkeeper Name Role Phone Arsalan Díaz MD Primary Care Provider Encounter Details Date Type Department Care Team (Late st Contact Info) Description 07/16/2023 Scanned Document [facility] [address] [place] [address] Conversion, Onbase Social History Tobacco Use Types [...] Date/Time Associated Diagnosis Comments ELECTROCARDIOGRAM RHYTHM STRIP 07/16/2023 documented in this encounter Results * ELECTROCARDIOGRAM RHYTHM STRIP (07/16/2023) Narrative 07/16/2023 Ordered by an unspecified provider. us Onbase Conversion ECG ORDERABLES Final Result documented in this encounter Visit Diagnoses Not on filedocumented in this encounter Care Teams Full Charge Bookkeeper Relationship Specialty Start Date End Date Arsalan Díaz MD [address] [place] [address] PCP - General 07/22/23 documented as of this encounter
--- OUTSIDE RECORDS SUMMARY | 2025-05-05 11:48 | XMS_ITS | Encounter Summary ---
Author Organization [facility] Address [address] [place] [address] Care Team Providers Care Linoleum Tile Floor Layer Name Role Phone Arsalan Díaz MD Primary Care Provider [phone] Maricarmen Jj CLOTHES DRIER ASSEMBLER Unavailable Encounter Details Date Type Department Care Team (Late st Contact Info) Description 05/11/2024 Abstract [facility] [address] [place] [address] Arsalan Díaz MD [address] [place] [address] Social History Tobacco Use Types Packs/Day Years [...] How often do you attend chur or latter day services? Patient declined 06/11/2023 Do you belong to any clubs o r organizations such as anabaptist groups, unions, fraFreebase or athletic groups, or school groups? No [...] Date Recorded Patient Health Questionnaire-2 Score 0 05/08/2024 [facility]at ionde Health - Occupational Stress Questionnaire Answer Date [...] place to sleep or slept in a penitentiary (including now)? No 06/11/2023 Sex and Gender [...] Office Visit [facility] [address] [place] [address] Jared Linda DO [address] [place] [address] documented as of this encounter Goals Goal Patient Goal Type Associated Problems Recent Progress Patient-Stated? Author Help patient manage antidepressant medication Care Plan Patient on antidepressant monitoring plan Karely Callaway MA Baseline PHQ-9 Care Plan Baseline PHQ-9 Karely Callaway MA documented as of this encounter Visit Diagnoses Not on filedocumented in this encounter Additional Health Concerns Active Problems Noted Date Diagnosed Date Patient on antidepressant monitoring plan 2023 Baseline PHQ-9 03/02/2024 Assessment Noted Time PHQ-9 Depression Total Score: 0 03/02/20 24 11:00 AM EDT documented as of this encounter Care Teams Linoleum Tile Floor Layer Relationship Specialty Start Date End Date Arsalan Díaz MD [address] [place] [address] PCP - General Family Medicine 05/08/23 Maricarmen Jj NP [address] [place] [address] Nurse Practitioner Family Medicine 04/14/25 documented as of this encounter
--- OUTSIDE RECORDS SUMMARY | 2025-05-05 11:48 | XMS_ITS | Encounter Summary ---
Author Organization [facility] Address [address] [place] [address] Care Team Providers Care Director Compliance Name Role Phone Arsalan Díaz MD Primary Care Provider [phone] Maricarmen Jj SOFTWARE DEVELOPMENT MANAGER Unavailable Encounter Details Date Type Department Care Team (Late st Contact Info) Description 04/30/2024 Abstract [facility] [address] [place] [address] Arsalan Díaz MD [address] [place] [address] Social History Tobacco Use Types Packs/Day Years [...] How often do you attend chur or sikh services? Patient declined 06/11/2023 Do you belong to any clubs o r organizations such as bahai groups, unions, fraNetgen or athletic groups, or school groups? No [...] Date Recorded Patient Health Questionnaire-2 Score 0 03/02/2024 [facility] Occupat ionma Health - Occupational Stress Questionnaire Answer Date [...] place to sleep or slept in a long-term (including now)? No 06/11/2023 Sex and Gender [...] Office Visit [facility] [address] [place] [address] Jared Linda DO [address] [place] [address] documented as of this encounter Goals Goal [...] documented as of this encounter Care Teams Director Compliance Relationship Specialty Start Date End Date Arsalan Díaz MD [address] [place] [address] PCP - General Family Medicine 05/08/23 Maricarmen Jj NP [address] [place] [address] Nurse Practitioner Family Medicine 04/14/25 documented as of this encounter
--- OUTSIDE RECORDS SUMMARY | 2025-05-05 11:48 | XMS_ITS | Encounter Summary ---
Author Organization [facility] Address [address] [place] [address] Care Team Providers Care Rayon Winder Name Role Phone Arsalan Díaz MD Primary Care Provider [phone] Maricarmen Jj FINANCIAL DATA ANALYST Unavailable Encounter Details Date Type Department Care Team (Late st Contact Info) Description 05/13/2024 Abstract [facility] [address] [place] [address] Arsalan Díaz MD [address] [place] [address] Social History Tobacco Use Types Packs/Day Years [...] How often do you attend chur or mandaeism services? Patient declined 06/11/2023 Do you belong to any clubs o r organizations such as judaism groups, unions, [email or web address] or athletic groups, or school groups? No [...] Recorded Patient Health Questionnaire-2 Score 0 05/08/2024 [facility] Occupat ionnv Health - Occupational Stress Questionnaire Answer Date [...] place to sleep or slept in a fdc (including now)? No 06/11/2023 Sex and Gender [...] Office Visit [facility] [address] [place] [address] Jared Linda DO [address] [place] [address] documented as of this encounter Goals Goal [...] documented as of this encounter Care Teams Rayon Winder Relationship Specialty Start Date End Date Arsalan Díaz MD [address] [place] [address] PCP - General Family Medicine 05/08/23 Maricarmen Jj NP [address] [place] [address] Nurse Practitioner Family Medicine 04/14/25 documented as of this encounter
--- OUTSIDE RECORDS SUMMARY | 2025-05-05 11:48 | XMS_ITS | Encounter Summary ---
Author Organization [facility] Address [address] [place] [address] Phone Care Team Providers Care Inspector Semiconductor Wafer Name Role Phone Arsalan Díaz MD Primary Care Provider [phone] Encounter Details Date Type Department Care Team (Late st Contact Info) Description 07/18/2023 Scanned Document [facility] [address] [place] [address] Conversion, Onbase Social History Tobacco Use Types [...] on filedocumented in this encounter Care Teams Inspector Semiconductor Wafer Relationship Specialty Start Date End Date Arsalan Díaz MD [address] [place] [address] PCP - General 07/22/23 documented as of this encounter
--- OUTSIDE RECORDS SUMMARY | 2025-05-05 11:48 | XMS_ITS | Encounter Summary ---
Author Organization [facility] Address [address] [place] [address] Phone Care Team Providers Care Pineapple Plantation Manager Name Role Phone Arsalan Díaz MD Primary Care Provider Encounter Details Date Type Department Care Team (Late st Contact Info) Description 07/04/2023 Scanned Document [facility] [address] [place] [address] Conversion, Onbase Social History Tobacco Use Types [...] Procedure Name Priority Date/Time Associated Diagnosis Comments OUTSIDE IMAGING SCAN 07/04/2023 OUTSIDE IMAGING SCAN 07/04/2023 OUTSIDE IMAGING SCAN 07/04/2023 documented in this encounter Results * OUTSIDE IMAGING SCAN (07/04/2023) Anatomical Region Laterality Modality Other Narrative 07/04/2023 Ordered by an unspecified provider. us Onbase Conversion OUTSIDE SCAN Final Result * OUTSIDE IMAGING SCAN (07/04/2023) Anatomical Region Laterality Modality Other Narrative 07/04/2023 Ordered by an unspecified provider. us Onbase Conversion OUTSIDE SCAN Final Result * OUTSIDE IMAGING SCAN (07/04/2023) Anatomical Region Laterality Modality Other Narrative 07/04/2023 Ordered by an unspecified provider. us Onbase Conversion OUTSIDE SCAN Final Result documented in this encounter Visit Diagnoses Not on filedocumented in this encounter Care Teams Pineapple Plantation Manager Relationship Specialty Start Date End Date Arsalan Díaz MD [address] [place] [address] PCP - General 07/22/23 documented as of this encounter
--- OUTSIDE RECORDS SUMMARY | 2025-05-05 11:48 | XMS_ITS | Encounter Summary ---
Author Organization [facility] Address [address] [place] [address] Care Team Providers Care Bending Machine Set Up Operator Name Role Phone Arsalan Díaz MD Primary Care Provider [phone] Maricarmen Jj FILTER HELPER Unavailable Encounter Details Date Type Department Care Team (Late st Contact Info) Description 09/22/2023 Orders Only [facility] [address] [place] [address] Arsalan Díaz MD [address] [place] [address] Social History Tobacco Use Types Packs/Day Years [...] How often do you attend chur or adventism services? Patient declined 06/11/2023 Do you belong to any clubs o r organizations such as tenriism groups, unions, fraBabyBus or athletic groups, or school groups? No [...] Recorded Patient Health Questionnaire-2 Score 0 05/09/2023 [facility] Occupat ionms Health - Occupational Stress Questionnaire Answer Date [...] place to sleep or slept in a senior care (including now)? No 06/11/2023 Sex and Gender [...] Office Visit [facility] [address] [place] [address] Jared Linda DO [address] [place] [address] documented as of this encounter Procedures Procedure Name Priority Date/Time Associated Diagnosis Comments MAGNESIUM Routine 09/20/2023 9:42 PM EDT documented in this encounter Results * Magnesium (09/20/2023 9:42 PM EDT) Blood Venous blood specimen / Unknown us Arsalan Díaz MD LAB BLOOD ORDERABLES Final Res ult documented in this encounter Visit Diagnoses Not on filedocumented in this encounter Care Teams Bending Machine Set Up Operator Relationship Specialty Start Date End Date Arsalan Díaz MD [address] [place] [address] PCP - General Family Medicine 05/08/23 Maricarmen Jj NP [address] [place] [address] Nurse Practitioner Family Medicine 04/14/25 documented as of this encounter
--- OUTSIDE RECORDS SUMMARY | 2025-05-05 11:48 | XMS_ITS | Encounter Summary ---
Author Organization [facility] Address [address] [place] [address] Phone Care Team Providers Care Bone Grinder Name Role Phone Arsalan Díaz MD Primary Care Provider Encounter Details Date Type Department Care Team (Late st Contact Info) Description 11/15/2023 Scanned Document [facility] [address] [place] [id number] Scanning, Generic Provider Social History Tobacco Use [...] on filedocumented in this encounter Care Teams Bone Grinder Relationship Specialty Start Date End Date Arsalan Díaz MD [address] [place] [address] PCP - General 07/22/23 documented as of this encounter
--- OUTSIDE RECORDS SUMMARY | 2025-05-05 11:48 | XMS_ITS | Encounter Summary ---
Author Organization [facility] Address [address] [place] [address] Care Team Providers Care Boiler Installer Name Role Phone Arsalan Díaz MD Primary Care Provider [phone] Maricarmen Jj JOURNAL CLERK Unavailable Encounter Details Date Type Department Care Team (Late st Contact Info) Description 11/11/2023 Abstract [facility] [address] [place] [address] Arsalan Díaz MD [address] [place] [address] Social History Tobacco Use Types Packs/Day Years [...] How often do you attend chur or caodaism services? Patient declined 06/11/2023 Do you belong to any clubs o r organizations such as adventist groups, unions, fraControl4 or athletic groups, or school groups? No [...] Recorded Patient Health Questionnaire-2 Score 0 05/09/2023 [facility] - Occupational Stress [...] place to sleep or slept in a residential (including now)? No 06/11/2023 Sex and Gender [...] Office Visit [facility] [place] [address] [place] [address] Jared Linda DO [address] [place] [address] documented as of this encounter Visit Diagnoses Not on filedocumented in this encounter Care Teams Boiler Installer Relationship Specialty Start Date End Date Arsalan Díaz MD [address] [place] [address] PCP - General Family Medicine 05/08/23 Maricarmen Jj NP [address] [place] [address] Nurse Practitioner Family Medicine 04/14/25 documented as of this encounter
--- OUTSIDE RECORDS SUMMARY | 2025-05-05 11:48 | XMS_ITS | Encounter Summary ---
Author Organization [facility] Address [address] [place] [address] Care Team Providers Care Cra Name Role Phone Arsalan Díaz MD Primary Care Provider [phone] Maricarmen Jj INFANTRY OFFICER Unavailable Encounter Details Date Type Department Care Team (Late st Contact Info) Description 11/18/2023 Abstract [facility] [address] [place] [address] Arsalan Díaz MD [address] [place] [address] Social History Tobacco Use Types Packs/Day Years [...] How often do you attend chur or worship services? Patient declined 06/11/2023 Do you belong to any clubs o r organizations such as religion groups, unions, fraEquigerminal or athletic groups, or school groups? No [...] Recorded Patient Health Questionnaire-2 Score 0 05/09/2023 [facility] - Occupational Stress Questionnaire Answer Date [...] place to sleep or slept in a skilled nursing (including now)? No 06/11/2023 Sex and Gender [...] Office Visit [facility] [place] [address] [place] [address] Jared Linda DO [address] [place] [address] documented as of this encounter Visit Diagnoses Not on filedocumented in this encounter Care Teams Cra Relationship Specialty Start Date End Date Arsalan Díaz MD [address] [place] [address] PCP - General Family Medicine 05/08/23 Maricarmen Jj NP [address] [place] [address] Nurse Practitioner Family Medicine 04/14/25 documented as of this encounter
--- OUTSIDE RECORDS SUMMARY | 2025-05-05 11:48 | XMS_ITS | Encounter Summary ---
Author Organization [facility] Address [address] [place] [address] Care Team Providers Care Revenue Integrity Analyst Name Role Phone Arsalan Díaz MD Primary Care Provider [phone] Maricarmen Jj SKATE SHOP ATTENDANT Unavailable [phone] Encounter Details Date Type Department Care Team (Late st Contact Info) Description 09/23/2023 Abstract [facility] [address] [place] [address] Audrey Scruggs MA Social History Tobacco Use [...] often do you attend chur ch or restoration services? Patient declined 06/11/2023 Do you belong [...] Recorded Patient Health Questionnaire-2 Score 0 05/09/2023 [facility] Occupat ional Health - Occupational [...] Office Visit [facility] [place] [address] [place] [address] Jared Linda DO [address] [place] [address] documented as of this encounter Visit Diagnoses Not on filedocumented in this encounter Care Teams Revenue Integrity Analyst Relationship Specialty Start Date End Date Arsalan Díaz MD [address] [place] [address] PCP - General Family Medicine 05/08/23 Maricarmen Jj NP [address] [place] [address] Nurse Practitioner Family Medicine 04/14/25 documented as of this encounter
--- OUTSIDE RECORDS SUMMARY | 2025-05-05 11:48 | XMS_ITS | Encounter Summary ---
Author Organization [facility] Address [address] [place] [address] Phone Care Team Providers Care Check Embosser Name Role Phone Arsalan Díaz MD Primary Care Provider [phone] Encounter Details Date Type Department Care Team (Late st Contact Info) Description 07/15/2023 Scanned Document [facility] [address] [place] [address] Conversion, Onbase Social History Tobacco Use Types [...] on filedocumented in this encounter Care Teams Check Embosser Relationship Specialty Start Date End Date Arsalan Díaz MD [address] [place] [address] PCP - General 07/22/23 documented as of this encounter
--- OUTSIDE RECORDS SUMMARY | 2025-05-05 11:48 | XMS_ITS | Encounter Summary ---
Author Organization [facility] Address [address] [place] [address] Care Team Providers Care Tow Car Driver Name Role Phone Arsalan Díaz MD Primary Care Provider [phone] Jared Linda DO Unavailable [phone] Encounter Details Date Type Department Care Team (Late st Contact Info) Description 01/08/2018 Telephone Neurology [facility] [address] [place] [address] Yuliya Peacock PCA Social History Tobacco Use Types Packs/Day Years Used Date Smoking Tobacco: Never Assessed Sex and Gender Information Value Date Recorded Sex Assigned at Not on file Legal Sex Male 11:16 AM EDT Gender Identity Male 09/19/2017 11:22 AM EDT Sexual Orientation Not on file documented as of this encounter Miscellaneous Notes * Telephone Encounter - Yuliya Peacock - 01/08/2018 12:19 PM EST Pt calling stating referral for physical therapy was not received by office referred to. Refaxing referral to: Baron Silva, PT, [facility] Dept. of Rehab. Services, [address] [place] [address], [place] documented in this encounter Plan of Treatment Not on file documented as of this encounter Visit Diagnoses Not on filedocumented in this encounter Care Teams Tow Car Driver Relationship Specialty Start Date End Date Arsalan Díaz MD [address] [place] [address] PCP - General Family Medicine 09/21/17 Jared Linda DO [address] [place] [address] Consulting Physician Otolaryngology 12/11/17 documented as of this encounter
--- OUTSIDE RECORDS SUMMARY | 2025-05-05 11:48 | XMS_ITS | Clinical Summary ---
Author Organization [facility] Address [address] [place] [address] Care Team Providers Care Public Address System Mechanic Name Role Phone Arsalan Díaz MD Primary Care Provider [phone] Maricarmen Jj NP Unavailable [phone] Allergies No known active allergies Medications aspirin 81 MG chewable tablet 1 (one) time each day at the same time. Active ferrous sulfate 325 (65 Fe) MG tablet Take 325 mg by mouth in the morning. Take with meals. Active clotrimazole (Mycelex) 10 MG addis Take 10 mg by mouth in the morning and 10 mg in the evening and 10 mg before bedtime. 4 Active Magnesium 500 MG capsuleIndications :Hypomagnesemia Take 500 mg by mouth Daily Active coenzyme Q-10 400 MG capsuleIndications :Hypertension Take 400 mg by mouth Daily Active Cholecalciferol (Vitamin D3) 125 MCG (5000 UT) tablet dispersible Take 5,000 Units by mouth Daily Active chlorhexidine (Peridex) 0.12 % solution Use 15 mL in the mouth or throat if needed 4 Active atorvastatin (Lipitor) 40 MG tabletIndications: Mixed hyperlipidemia (CMS/HCC) Take 1 tablet (40 mg) by mouth 1 (one) time each day at the same time 90 tablet 3 5 04/14/20 26 Active ondansetron (Zofran) 8 MG tabletIndications: Nausea Take 1 tablet (8 mg) by mouth every 8 (eight) hours if needed for nausea 20 tablet 3 5 Active PARoxetine (Paxil) 40 MG tabletIndications: Generalized anxiety disorder (CMS/HCC) Take 1 tablet (40 mg) by mouth in the morning. 90 tablet 3 5 04/14/20 26 Active diazePAM (Valium) 5 MG tabletIndications: Vertigo of central origin,Dizziness and giddiness Take 1 tablet (5 mg) by mouth Daily as needed for anxiety 90 tablet 5 07/18/20 25 Active pantoprazole (ProtoNix) 40 MG EC tabletIndications: Gastroesophageal reflux disease without esophagitis Take 1 tablet (40 mg) by mouth in the morning. Take before meals. Do not crush, chew, or split. 90 tablet 3 5 04/14/20 26 Active tamsulosin (Flomax) 0.4 MG 24 hr capsuleIndications :Benign prostatic hyperplasia without lower urinary tract symptoms Take 1 capsule (0.4 mg) by mouth 1 (one) time each day at the same time 90 capsule 3 5 04/19/20 26 Active ondansetron (Zofran) 8 MG tablet Take 8 mg by mouth every 8 (eight) hours if needed for nausea. 3 04/19/20 25 Discontin ued(Reord er) amoxicillin-clavul anate (Augmentin) 875-125 MG tablet Take 1 tablet by mouth in the morning and 1 tablet before bedtime. 4 04/19/20 25 Discontin ued(Thera py completed ) pantoprazole (ProtoNix) 40 MG EC tabletIndications: Gastroesophageal reflux disease without esophagitis Take 1 tablet (40 mg) by mouth in the morning. Take before meals. Do not crush, chew, or split.. 90 tablet 4 04/19/20 25 Discontin ued(Reord er) diazePAM (Valium) 5 MG tabletIndications: Vertigo of central origin,Dizziness and giddiness Take 1 tablet (5 mg) by mouth 1 (one) time each day at the same time 90 tablet 1 4 04/19/20 25 Discontin ued(Reord er) fluconazole (Diflucan) 100 MG tablet Take 100 mg by mouth Daily 4 04/19/20 25 Discontin ued(Thera py completed ) tamsulosin (Flomax) 0.4 MG 24 hr capsuleIndications :Benign prostatic hyperplasia without lower urinary tract symptoms Take 1 capsule (0.4 mg) by mouth 1 (one) time each day at the same time 90 capsule 3 4 04/19/20 25 Discontin ued(Reord er) PARoxetine (Paxil) 40 MG tabletIndications: Generalized anxiety disorder (CMS/HCC) Take 1 tablet (40 mg) by mouth in the morning. 90 tablet 1 4 04/19/20 25 Discontin ued(Reord er) atorvastatin (Lipitor) 40 MG tabletIndications: Mixed hyperlipidemia (CMS/HCC) Take 1 tablet (40 mg) by mouth 1 (one) time each day at the same time 90 tablet 4 04/19/20 25 Discontin ued(Reord er) Active Problems Problem Noted Date Diagnosed Date Malignant neoplasm of base of tongue 04/19/2025 Overview (04/19/2025): Documented on 07/26/2023 by JARED LINDA Abscess of mandible 05/18/2024 Epiglottic lesion 05/18/2024 Myositis 05/18/2024 Osteonecrosis 05/18/2024 Sore throat 05/18/2024 Cervicalgia 03/20/2024 LBBB (left bundle branch block) 12/12/2023 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 07/26/2023 Cigar smoker 07/04/2023 Dizziness and giddiness 04/12/2023 Generalized anxiety disorder 04/12/2023 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 04/12/2023 Hyperlipidemia 04/12/2023 Major depression, single episode 04/12/2023 Erectile dysfunction 04/12/2023 Sensorineural hearing loss 04/12/2023 Sleep apnea 04/12/2023 Tinnitus 04/12/2023 Unsteady gait 04/12/2023 Vestibular dysfunction 04/12/2023 Vitamin D deficiency 04/12/2023 Benign prostatic hyperplasia 01/04/2021 Vitamin B12 deficiency (non anemic) 08/27/2018 Headache, new daily persistent (NDPH) 12/31/2017 Migraine aura without headache (migraine equival ents) 12/11/2017 Vestibular migraine 12/11/2017 Cervicocranial syndrome 03/26/2017 Balance disorder 03/26/2017 Intractable chronic migraine without aura and without status migrainosus 03/26/2017 Vertigo of central origin 03/26/2017 Thrombocytopenia 10/01/2014 Resolved Problems Problem Noted Date Diagnosed Date Resolved Date Anxiety 11/11/2024 11/11/2024 Feeling of incomplete bladder emptying 11/11/2024 11/11/2024 Metastatic malignant neoplasm 11/11/2024 11/11/2024 Prostate cancer screening 11/11/2024 BPH (benign prostatic hyperplasia) 04/12/2023 10/02/2023 Class 1 obesity 04/12/2023 07/08/2023 Falling 04/12/2023 10/02/2023 Leukemic reticuloendothelios is, extranodal and solid organ sites 04/12/2023 10/02/2023 Other male erectile dysfunction 04/12/2023 10/02/2023 Vitamin B 12 deficiency 04/12/202312/2022 Current smoker 06/24/2020 04/19/2025 Poor posture 12/31/2017 07/08/2023 Weakness of neck 12/31/2017 10/02/2023 Obesity (BMI 30.0-34.9) 12/11/201712/2022 Dizzy spells 12/11/2017 10/02/2023 Recurrent falls 04/05/2017 07/30/2023 Hairy cell leukemia, in relapse 08/24/2015 10/02/2023 Encounters Date Type Department Care Team Description 04/20/2025 Orders Only [facility] [address] [place] [address] Maricarmen Jj NP 04/19/2025 10:40 AM EDT Office Visit [facility] [address] [place] [address] Maricarmen Jj NP Nausea (Primary Dx); Mixed hyperlipidemia (CMS/HCC); Generalized anxiety disorder (CMS/HCC); Vertigo of central origin; Dizziness and giddiness; Gastroesophageal reflux disease without esophagitis; Benign prostatic hyperplasia without lower urinary tract symptoms; Encounter for vitamin deficiency screening; Screening for lipid disorders; Adult general medical examination; Screening for thyroid disorder; Encounter for prostate cancer screening; Low magnesium level; Vitamin D deficiency; Vitamin B12 deficiency (non anemic); Routine general medical examination at health care facility 04/19/2025 Abstract [facility] [address] [place] [address] Maricarmen Jj, SEMI AUTOMATIC SEWING MACHINE OPERATOR 04/19/2025 Abstract [facility] [address] [place] [address] Maricarmen Jj, SEMI AUTOMATIC SEWING MACHINE OPERATOR 04/19/2025 Bamboo flowsheet [facility] [address] [place] [address] Maricarmen Jj, RAIMUNDO 04/19/2025 Travel 04/18/2025 Travel 04/06/2025 3:00 PM EDT Clinical Support [facility] [address] [place] [address] Yoko Scott CCC-A Sensorineural hearing loss, bilateral (Primary Dx) 04/06/2025 Bamboo flowsheet [facility] [address] [place] [address] Yoko Scott CCC-A 04/02/2025 Abstract [facility] [address] [place] [address] Arsalan Díaz MD 02/22/2025 12:00 PM EDT Ancillary Procedure [facility] [address] [facility] [place] [address] History of neck dissection; 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); Sarcoidosis 02/22/2025 Travel 02/15/2025 Refill [facility] [address] [place] [address] Arsalan Díaz MD Vertigo of central origin; Dizziness and giddiness 02/15/2025 Refill [facility] [address] [place] [address] Shea Younger NP Mixed hyperlipidemia ([facility]/HCC) ; Generalized anxiety disorder ([facility]/HCC) 02/10/2025 1:45 PM EDT Office Visit [facility] [address] [place] [address] Jared Linda, History of neck dissection (Primary Dx); 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 ([facility]); Sarcoidosis 02/10/2025 Bamboo flowsheet [facility] [address] [place] [address] Jared Linda, 02/10/2025 Travel 02/03/2025 Travel from Last 3 Months Immunizations Immunization Administration Dates Next Due Influenza, High Dose Seasona l, Preservative Free 08/18/2024,11/02/2022,10/04/2021,10/17 Influenza, High-dose Seasona l, Quadrivalent, Preservative Free 10/17/2020 Influenza, Unspecified 06/03/2023 Influenza, injectable, quadrivalent 10/14/2019 Influenza, injectable, quadr ivalent, preservative free 10/14/2019,11/02/2015 Influenza, seasonal, intrade rmal, preservative free 09/16/2017 Pneumococcal Conjugate PCV 13 07/07/2018 Pneumococcal Polysaccharide PPSV23 06/03/2023, Tdap 11/02/2022 Family History Medical History Relation Name Comments Diabetes Father Rene D dementia Father Rene D 01/07/2020 Pancreatic cancer Mother Cancer Paternal Grandmother Cervical cancer Relation Name Status Comments Brother 3 brothers Daughter Alive 1 daughter Father Rene D Maternal Grandfather Maternal Grandmother Mother Other laya pedro others/ sisters : gerardo 1950, you 1957, thanh 1959, tom 1967 Paternal Grandfather Paternal Grandmother Cervical cancer Sister 1 sister Son Alive 1 son Social History Tobacco Use Types Packs/Day Years Used Date Smoking Tobacco: Former Cigars Q uit: 05/20/2024 Passive Smoke Exposure: Never Smokeless Tobacco: Former Tobacco Cessation:Counseling Given: Not Answered Comments:Start smoking : 20 years ago Alcohol [...] How often do you attend chur or cheondoism services? Patient declined 08/17/2024 Do you belong [...] Recorded Patient Health Questionnaire-2 Score 0 04/19/2025 [facility] Occupat ional [facility] - Occupational Stress Questionnaire Answer Date Recorded [...] place to sleep or slept in a chcf (including now)? No 06/11/2023 Housing Stability Vital Sign Answer Jacek e Recorded In the last 12 months, was t here a time when you were not able to pay the mortgage or rent on time? No 08/17/2024 Number of Times Moved in the Last Year Not on fi le 08/17/2024 At any time in the past 12 m [facility], were you homeless or living in a chcf (including now)? No 08/17/2024 Sex and Gender Information Value Date Recorded Sex Assigned at Male 05/08/2023 12:49 PM EDT Legal Sex Male 6:37 PM EDT Gender Identity Male 02/13/2023 6:37 PM EDT Sexual Orientation Straight 05/08/2023 12 :49 PM EDT Last Filed Vital Signs Vital Sign Reading Time Taken Comments Blood Pressure 122/80 04/19/2025 10:25 AM EDT Pulse 66 04/19/2025 10:25 AM EDT Temperature 36.3 C (97.3 F) 08/18/2024 9:45 AM EDT Respiratory Rate 20 04/19/2025 10:25 AM EDT Oxygen Saturation 98% 04/19/2025 10:25 AM EDT Inhaled Oxygen Concentration - - Weight 96.2 kg (212 lb) 04/19/2025 10:25 AM EDT Height 181.6 cm (5' 11.5 ) 04/19/2025 10:25 AM E DT Body Mass Index 29.16 04/19/2025 10:25 AM EDT Plan of Treatment Upcoming Encounters Date Type Department Care Team (Late st Contact Info) Description 05/18/2025 10:45 AM EDT Office Visit [facility] [place] [address] [place] [address] Jared Linda, [address] [place] [address] Health Maintenance Due Date Last Done Comments CT Colonography 1955 FIT-DNA 1955 FIT 1955 FOBT 1955 Sigmoidoscopy 1955 Colonoscopy 07/22/2028 07/22/2018 Colorectal Cancer Screening 07/22/2028 Pneumococcal Vaccine: 65+ Years Completed 06/03/2023, 10/17/2020, 07/07/2018 Influenza Vaccine Completed 08/18/2024, , 11/02/2022, Additional history exists Goals Goal Patient Goal Type Associated Problems Recent Progress Patient-Stated? 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 The pulmonary vascularity is unremarkable. The lungs are fully expanded and clear. No pleural abnormalities are seen. No evidence of mediastinal or hilar enlargement. The osseous structures are intact. No soft tissue abnormalities are seen. IMPRESSION: Normal chest x-ray. Dictated on: 02/23/2025 3:08 PM This report has been electronically signed and approved by the interpreting Radiologist. Procedure Note Buzz Castillo MD - 02/23/2025 XR CHEST 2 VIEWS Reason for exam: History of head and neck cancer Technique: PA and lateral view Findings: The heart size is normal. The pulmonary vascularity is unremarkable. Thelungs are fully expanded and clear. No pleural abnormalities are seen.No evidence of mediastinal or hilar enlargement. The osseous structuresare intact. No soft tissue abnormalities are seen. IMPRESSION: Normal chest x-ray. Dictated on: 02/23/2025 3:08 PM This report has been electronically signed and approved by theinterpreting Radiologist. us Jared Linda DO IMG XR PROCEDURES Final Res ult * Colonoscopy (07/22/2018 12:00 PM EDT) Anatomical Region Laterality Modality Endoscopy 07/22/2018 12:0 0 PM EDT Narrative 07/22/2018 12:00 PM EDT PERFORMED AT [facility] LOCATION:[id number] Procedure Note CONVERSION, GENERIC - 04/17/2023 PERFORMED AT [facility] LOCATION:[id number] Arsalan Díaz MD ENDOSCOPY PROCEDURE ORDERABLES Final Result from Last 3 Months or Most Recently Relevant to Health Maintenance Additional Health Concerns Active Problems Noted Date Diagnosed Date Patient on antidepressant monitoring plan 2023 Baseline PHQ-9 03/02/2024 Insurance [employer] MEDICARE Care Teams Public Address System Mechanic Relationship Specialty Start Date End Date Arsalan Díaz MD [address] [place] [address] PCP - General Family Medicine 05/08/23 Maricarmen Jj NP [address] [place] [address] Nurse Practitioner Family Medicine 04/14/25
--- OUTSIDE RECORDS SUMMARY | 2025-05-05 11:48 | XMS_ITS | Encounter Summary ---
Author Organization [facility] Address [address] [place] [address] Care Team Providers Care Automobile Tester Name Role Phone Arsalan Díaz MD Primary Care Provider [phone] Maricarmen Jj DRILLING FIELD SPECIALIST Unavailable Encounter Details Date Type Department Care Team (Late st Contact Info) Description 10/29/2023 Abstract [facility] [address] [place] [address] Arsalan Díaz MD [address] [place] [address] Social History Tobacco Use Types Packs/Day Years [...] any clubs o r organizations such as mormon groups, unions, fraBullet News Ltd or athletic groups, or school groups? No [...] Recorded Patient Health Questionnaire-2 Score 0 05/09/2023 [facility] ion[facility] Health - Occupational Stress Questionnaire Answer Date [...] Office Visit [facility] [address] [place] [address] Jared Linda DO [address] [place] [address] documented as of this encounter Visit Diagnoses Not on filedocumented in this encounter Care Teams Automobile Tester Relationship Specialty Start Date End Date Arsalan Díaz MD [address] [place] [address] PCP - General Family Medicine 05/08/23 Maricarmen Jj DRILLING FIELD SPECIALIST [address] [place] [address] Nurse Practitioner Family Medicine 04/14/25 documented as of this encounter
--- OUTSIDE RECORDS SUMMARY | 2025-05-05 11:48 | XMS_ITS | Encounter Summary ---
Author Organization [facility] Address [address] [place] [address] Phone Care Team Providers Care Seed Production Field Supervisor Name Role Phone Arsalan Díaz MD Primary Care Provider [phone] Encounter Details Date Type Department Care Team (Late st Contact Info) Description 12/20/2023 Scanned Document [facility] [address] [place] [phone] Scanning, Generic Provider Social History Tobacco Use Types Packs/Day Years Used Date Smoking Tobacco: Never Assessed Alcohol Use Standard Drinks/Week Comments Yes 0 [...] Procedure Name Priority Date/Time Associated Diagnosis Comments ECHOCARDIOGRAM 12/20/2023 documented in this encounter Results * ECHOCARDIOGRAM (12/20/2023) Narrative 12/20/2023 Ordered by an unspecified provider. us Generic Provider Scanning CV ECHO PROCEDURES Fin al Result documented in this encounter Visit Diagnoses Not on filedocumented in this encounter Care Teams Seed Production Field Supervisor Relationship Specialty Start Date End Date Arsalan Díaz MD [address] [place] [address] PCP - General 07/22/23 documented as of this encounter
--- OUTSIDE RECORDS SUMMARY | 2025-05-05 11:48 | XMS_ITS | Encounter Summary ---
Author Organization [facility] Address [address] [place] [address] Care Team Providers Care National Account Representative Name Role Phone Arsalan Díaz MD Primary Care Provider [phone] Maricarmen Jj FOUR ROLL CALENDER OPERATOR Unavailable [phone] Encounter Details Date Type Department Care Team (Late st Contact Info) Description 04/19/2025 Abstract [facility] [address] [place] [address] Maricarmen Jj, RAIMUNDO [address] [place] [address] Social History Tobacco Use Types Packs/Day Years [...] week 08/17/2024 How often do you attend [facility] or episcopalian services? Patient declined 08/17/2024 Do you belong to any clubs o r organizations such as scientology groups, unions, fraternal or athletic groups, or [...] Recorded Patient Health Questionnaire-2 Score 0 04/19/2025 [facility] of Occupat ional Health - Occupational Stress [...] a senior care (including now)? No 06/11/2023 Housing Stability Vital Sign Answer Jacek e Recorded In the last 12 months, was t here a time when you were not able to pay the mortgage or rent on time? No 08/17/2024 Number of Times Moved in the Last Year Not on fi le 08/17/2024 At any time in the past 12 m [facility], were you homeless or living in a senior care (including now)? No 08/17/2024 Sex and Gender [...] Visit [facility] [address] [place] [address] Jared Linda DO [address] [place] [address] documented as of this encounter Goals Goal [...] documented as of this encounter Care Teams National Account Representative Relationship Specialty Start Date End Date Arsalan Díaz MD [address] [place] [address] PCP - General Family Medicine 05/08/23 Maricarmen Jj NP [address] [place] [address] Nurse Practitioner Family Medicine 04/14/25 documented as of this encounter
--- OUTSIDE RECORDS SUMMARY | 2025-05-05 11:48 | XMS_ITS | Encounter Summary ---
Author Organization [facility] Address [address] [place] [address] Care Team Providers Care Winterizer Name Role Phone Arsalan Díaz MD Primary Care Provider [phone] Maricarmen Jj CLIENT LEADER Unavailable Encounter Details Date Type Department Care Team (Late st Contact Info) Description 11/22/2024 Abstract [facility] [address] [place] [phone] Arsalan Díaz MD [address] [place] [address] Social History Tobacco Use Types Packs/Day Years [...] How often do you attend chur or baptism services? Patient declined 08/17/2024 Do you belong to any clubs o r organizations such as hinduism groups, unions, fra[employer]gr [employer] or athletic groups, or school groups? No [...] Recorded Patient Health Questionnaire-2 Score 0 08/18/2024 [facility] of Occupat ional Health - Occupational [...] any time in the past 12 m [facility], were you homeless or living in a [...] 05/18/2025 10:45 AM EDT Office Visit [facility] [address] [place] [address] Jared Linda, DO [address] [place] [address] documented as of this encounter Goals Goal [...] documented as of this encounter Care Teams Winterizer Relationship Specialty Start Date End Date Arsalan Díaz MD [address] [place] [address] PCP - General Family Medicine 05/08/23 Maricarmen Jj NP [address] [place] [address] Nurse Practitioner Family Medicine 04/14/25 documented as of this encounter
--- OUTSIDE RECORDS SUMMARY | 2025-05-05 11:49 | XMS_ITS | Encounter Summary ---
Author Organization [facility] Address [address] [place] [address] Care Team Providers Care Tax Preparer Name Role Phone Arsalan Díaz MD Primary Care Provider [phone] Maricarmen Jj SUPPORT DBA Unavailable Encounter Details Date Type Department Care Team (Late st Contact Info) Description 10/12/2023 Abstract [facility] [address] [place] [address] Arsalan Díaz MD [address] [place] [address] Social History Tobacco Use Types Packs/Day Years [...] How often do you attend chur or amish services? Patient declined 06/11/2023 Do you belong to any clubs o r organizations such as roman catholic groups, unions, fraChina PharmaHub or athletic groups, or school groups? No [...] Recorded Patient Health Questionnaire-2 Score 0 05/09/2023 [facility] of Occupat ionla Health - Occupational Stress Questionnaire Answer Date [...] in a usp (including now)? No 06/11/2023 Sex and Gender [...] Office Visit [facility] [address] [place] [address] Jared Linda DO [address] [place] [address] documented as of this encounter Visit Diagnoses Not on filedocumented in this encounter Care Teams Tax Preparer Relationship Specialty Start Date End Date Arsalan Díaz MD [address] [place] [address] PCP - General Family Medicine 05/08/23 Maricarmen Jj NP [address] [place] [address] Nurse Practitioner Family Medicine 04/14/25 documented as of this encounter
--- OUTSIDE RECORDS SUMMARY | 2025-05-05 11:49 | XMS_ITS | Encounter Summary ---
Author Organization [facility] Address [address] [place] [address] Care Team Providers Care Restaurant Greeter Name Role Phone Arsalan Díaz MD Primary Care Provider [phone] Maricarmen Jj PACK PRESS OPERATOR Unavailable Encounter Details Date Type Department Care Team (Late st Contact Info) Description 07/27/2023 External Result Encounter [facility] External Department Unsolicited Jared Linda, DO [address] [place] [address] Social History Tobacco Use Types Packs/Day Years [...] often do you attend chur ch or moravian services? Patient declined 06/11/2023 Do you belong to any clubs o r organizations such as christian groups, unions, fraternal or athletic groups, or [...] Recorded Patient Health Questionnaire-2 Score 0 05/09/2023 [facility] - Occupational Stress Questionnaire Answer Date Recorded [...] suspected to have Coronavirus/COVID-19? No / Unsure 07/24/2023 8:14 PM EDT documented as of this encounter Plan of Treatment Upcoming Encounters Date Type Department Care Team (Late st Contact Info) Description 05/18/2025 10:45 AM EDT Office Visit [facility] [address] [place] [address] Jared Linda, [address] [place] [address] documented as of this encounter Procedures Procedure Name Priority Date/Time Associated Diagnosis Comments ECG 12-LEAD 07/27/2023 7:05 AM EDT documented in this encounter Results * ECG 12 lead (07/27/2023 7:05 AM EDT) 07/27/2023 7:05 AM EDT Narrative [facility] - 07/29/2023 6:42 PM EDT [place] [id number] Electrocardiograph Report Signed Patient: Jerson Ramírez SR MR#: [id number] : 1955 Acct:[id number] Age/Sex: 67 / M ADM Date: 07/26/23 Loc: 4N Room: [address] [place] [address] Type: DIS IN Attending Dr: Jared Linda DO Ordering Provider: Jared Linda DO Date of Service: 07/27/23 ECG/ECG 12 lead ECG: post op Copies to: Test Reason : Blood Pressure : / mmHG Vent. Rate : 066 BPM Atrial Rate : 066 BPM P-R Int : 184 ms QRS Dur : 142 ms QT Int : 440 ms P-R-T Axes : 033 060 267 degrees QTc Int : 461 ms Normal sinus rhythm Left bundle branch block Abnormal ECG When compared with ECG of 16-JUL-2023 09:13, No significant change was found Confirmed by JC LE MD ([id number]) on 07/29/2023 6:37:54 PM Referred By: Electronically Signed By:JC LE MD Transcribed By: MUS Signed By Jc Le MD 0 07/29/23 1837 Procedure Note Jc Le MD - 07/29/2023 [place] [id number] Electrocardiograph Report Signed Patient: Jerson Ramírez SRMR#: [id number] : 5Acct:[id number] Age/Sex: 67 / MADM Date: 07/26/23 Loc: 4N Room: [id number]: DIS IN Attending Dr: Jared Linda DO Ordering Provider: Jared Linda DO Date of Service: 07/27/23 ECG/ECG 12 lead ECG: post op Copies to: Test Reason : Blood Pressure : / mmHG Vent. Rate : 066 BPM Atrial Rate : 066 BPM P-R Int : 184 ms QRS Dur : 142 ms QT Int : 440 ms P-R-T Axes : 033 060 267 degrees QTc Int : 461 ms Normal sinus rhythm Left bundle branch block Abnormal ECG When compared with ECG of 16-JUL-2023 09:13, No significant change was found Confirmed by JC LE MD ([id number]) on 07/29/2023 6:37:54 PM Referred By: Electronically Signed By:JC LE MD Transcribed By: MUS Signed By JEVON Gutierrez 07/29/23 7615 us Jared Linda DO ECG ORDERABLES Final Resul t [facility] [address] [place] [address], documented in this encounter Visit Diagnoses Not on filedocumented in this encounter Care Teams Restaurant Greeter Relationship Specialty Start Date End Date Arsalan Díaz MD [address] [place] [address] PCP - General Family Medicine 05/08/23 Maricarmen Jj NP [address] [place] [address] Nurse Practitioner Family Medicine 04/14/25 documented as of this encounter
--- OUTSIDE RECORDS SUMMARY | 2025-05-05 11:49 | XMS_ITS | Encounter Summary ---
Author Organization [facility] Address [address] [place] [address] Care Team Providers Care Abrasive Coating Machine Operator Name Role Phone Arsalan Díaz MD Primary Care Provider [phone] Maricarmen Jj MANAGER APPLIED Unavailable Encounter Details Date Type Department Care Team (Late st Contact Info) Description 04/09/2024 Abstract [facility] [address] [place] [address] Arsalan Díaz MD [address] [place] [address] Social History Tobacco Use Types Packs/Day Years [...] attend chur or baptism services? Patient declined 06/11/2023 Do you belong to any clubs o r organizations such as mandaen groups, unions, fraMidfin Systems or athletic groups, or school groups? No [...] Recorded Patient Health Questionnaire-2 Score 0 03/02/2024 [facility] of Occupat ionut Health - Occupational Stress Questionnaire Answer Date [...] place to sleep or slept in a assisted (including now)? No 06/11/2023 Sex and Gender [...] Office Visit [facility] [address] [place] [address] Jared Linda DO [address] [place] [address] documented as of this encounter Goals Goal [...] documented as of this encounter Care Teams Abrasive Coating Machine Operator Relationship Specialty Start Date End Date Arsalan Díaz MD [address] [place] [address] PCP - General Family Medicine 05/08/23 Maricarmen Jj NP [address] [place] [address] Nurse Practitioner Family Medicine 04/14/25 documented as of this encounter
--- OUTSIDE RECORDS SUMMARY | 2025-05-05 11:49 | XMS_ITS | Encounter Summary ---
Author Organization [facility] Address [address] [place] [address] Care Team Providers Care Top Dyeing Machine Loader Name Role Phone Arsalan Díaz MD Primary Care Provider [phone] Maricarmen Jj HOSE CEMENTER Unavailable [phone] Encounter Details Date Type Department Care Team (Late st Contact Info) Description 08/19/2024 Abstract [facility] [address] [place] [address] Arsalan Díaz MD [address] [place] [address] Social History Tobacco Use Types Packs/Day Years Used Date Smoking Tobacco: Former Cigars Passive Smoke Exposure: Never Smokeless Tobacco: [...] How often do you attend chur or taoist services? Patient declined 08/17/2024 Do you belong to any clubs o r organizations such as faith groups, unions, fraDubset Media or athletic groups, or school groups? No [...] Recorded Patient Health Questionnaire-2 Score 0 08/18/2024 [facility] of Occupat ional Health - Occupational Stress [...] place to sleep or slept in a halfway (including now)? No 06/11/2023 Housing Stability Vital Sign Answer Jacek e Recorded In the last 12 months, was t here a time when you were not able to pay the mortgage or rent on time? No 08/17/2024 Number of Times Moved in the Last Year Not on fi le 08/17/2024 At any time in the past 12 m [facility], were you homeless or living in a halfway (including now)? No 08/17/2024 Sex and Gender [...] AM EDT Office Visit [facility] [address] [place] [address] Jared Linda, [address] [place] [address] documented as of this encounter Goals Goal [...] documented as of this encounter Care Teams Top Dyeing Machine Loader Relationship Specialty Start Date End Date Arsalan Díaz MD [address] [place] [address] PCP - General Family Medicine 05/08/23 Maricarmen Jj HOSE CEMENTER [address] [place] [address] Nurse Practitioner Family Medicine 04/14/25 documented as of this encounter
--- OUTSIDE RECORDS SUMMARY | 2025-05-05 11:49 | XMS_ITS | Encounter Summary ---
Author Organization [facility] Address [address] [place] [address] Care Team Providers Care Molder Machine Tender Name Role Phone Arsalan Díaz MD Primary Care Provider [phone] Maricarmen Jj BLADDER TRIMMER Unavailable Encounter Details Date Type Department Care Team (Late st Contact Info) Description 10/21/2023 Abstract [facility] [address] [place] [address] Audrey Scruggs MA Social History Tobacco Use [...] often do you attend chur ch or jewish services? Patient declined 06/11/2023 Do you belong to any clubs o r organizations such as mandaen groups, unions, fraternal or athletic groups, or [...] Recorded Patient Health Questionnaire-2 Score 0 05/09/2023 [facility] of Occupat ional Health - Occupational [...] place to sleep or slept in a mcfp (including now)? No 06/11/2023 Sex and Gender [...] Office Visit [facility] [address] [place] [address] Jared Linda DO [address] [place] [address] documented as of this encounter Visit Diagnoses Not on filedocumented in this encounter Care Teams Molder Machine Tender Relationship Specialty Start Date End Date Arsalan Díaz MD [address] [place] [address] PCP - General Family Medicine 05/08/23 Maricarmen Jj NP [address] [place] [address] Nurse Practitioner Family Medicine 04/14/25 documented as of this encounter
--- OUTSIDE RECORDS SUMMARY | 2025-05-05 11:49 | XMS_ITS | Encounter Summary ---
Author Organization [facility] Address [address] [place] [address] Care Team Providers Care Biscuit Packer Name Role Phone Arsalan Díaz MD Primary Care Provider [phone] Maricarmen Jj FRENCH BINDER Unavailable [phone] Encounter Details Date Type Department Care Team (Late st Contact Info) Description 07/05/2023 Abstract [facility] [address] [place] [address] Jared Linda, [address] [place] [address] Social History Tobacco Use Types Packs/Day Years Used Date Smoking Tobacco: Every Day Cigars Passive Smoke Exposure: Never Smokeless Tobacco: Never Alcohol Use Standard Drinks/Week Comments Yes 0 (1 standard drink = 0.6 oz pur e alcohol) Humiliation, Afraid, Rape, and Kick questionnair e [...] often do you attend chur ch or episcopalian services? Patient declined 06/11/2023 Do you belong to any clubs o r organizations such as protestant groups, unions, fraternal or athletic groups, or [...] [facility] of Occupat ional [facility] - Occupational Stress Questionnaire Answer Date [...] place to sleep or slept in a mcc (including now)? No 06/11/2023 Sex and Gender [...] suspected to have Coronavirus/COVID-19? No / Unsure 07/07/2023 3:09 PM EDT documented as of this encounter Plan of Treatment Upcoming Encounters Date Type Department Care Team (Late st Contact Info) Description 05/18/2025 10:45 AM EDT Office Visit [facility] [address] [place] [address] Jared Linda DO [address] [place] [address] documented as of this encounter Visit Diagnoses Not on filedocumented in this encounter Care Teams Biscuit Packer Relationship Specialty Start Date End Date Arsalan Díaz MD [address] [place] [address] PCP - General Family Medicine 05/08/23 Maricarmen Jj NP [address] [place] [address] Nurse Practitioner Family Medicine 04/14/25 documented as of this encounter
--- OUTSIDE RECORDS SUMMARY | 2025-05-05 11:49 | XMS_ITS | Encounter Summary ---
Author Organization [facility] Address [address] [place] [address] Care Team Providers Care National Sales Director Name Role Phone Arsalan Díaz MD Primary Care Provider [phone] Maricarmen Jj WELDER APPRENTICE GAS Unavailable [phone] Encounter Details Date Type Department Care Team (Late st Contact Info) Description 07/04/2023 External Result Encounter [facility] External Department Unsolicited Levy Johnson, DO [address] [place] [address] Social History Tobacco Use Types Packs/Day Years [...] often do you attend chur ch or scientology services? Patient declined 06/11/2023 Do you belong to any clubs o r organizations such as baptist groups, unions, fraternal or athletic groups, or [...] Recorded Patient Health Questionnaire-2 Score 0 05/09/2023 [facility] - Occupational Stress Questionnaire Answer Date [...] 05/18/2025 10:45 AM EDT Office Visit [facility] [address] [place] [address] Jared Linda DO [address] [place] [address] documented as of this encounter Procedures Procedure Name Priority Date/Time Associated Diagnosis Comments CT SOFT TISSUE NECK W IV CONTRAST 07/04/2023 1:04 PM EDT documented in this encounter Results * CT soft tissue neck w IV contrast (07/04/2023 1:04 PM EDT) Anatomical Region Laterality Modality Head, Neck Computed Tomogra phy 07/04/2023 1:04 PM EDT Impressions 07/08/2023 11:23 AM EDT Similar 4.3 x 2.8 cm LEFT neck mass within or adjacent to the carotid space as described above. This may be concern for enlarged lymph node. Impression dictated by: Randal Pardo M.D.07/04/2023 1:16 PM Dictation Location: [id number]-01 Transcribed By: PWS 07/04/23 1316 Dictated By: Randal Pardo DO 07/04/23 1304 Signed By: <Electronically signed by Randal Pardo DO in OV> 07/04/23 1316 Narrative 07/08/2023 11:23 AM EDT [facility] [place] [address] [place] [address] CT Scan Report Signed Patient: Jerson Ramírez SR MR#: [id number] : 1955 Acct:[id number] Age/Sex: 67 / M ADM Date: 07/04/23 Loc: Room: [facility] Attending Dr: Levy Johnson II DO Copies to: Levy Johnson II, DO Ordering Provider: Levy Johnson II, DO Date of Service: 07/04/23 CT/CT soft tissue neck w con: enlarged lymphnode CT Neck with contrast TECHNIQUE: Axial imaging with 2-D reconstruction. 90cc of Isovue-[address] exam was performed using one or more the following dose reduction techniques: Automated exposure control, adjustment of the MA and/or Kv according to patient size, or use of the iterative reconstruction technique. HISTORY: Left-sided neck lump. COMPARISON: Neck ultrasound 06/05/23 ORAL CAVITY: ANTERIOR TWO THIRDS OF THE TONGUE: Unremarkable ROOF OF THE MOUTH: Unremarkable BUCCAL CAVITY: Unremarkable FLOOR OF THE MOUTH: Unremarkable DENTITION: Unremarkable TONSILS: Unremarkable PHARYNX: NASOPHARYNX: Unremarkable OROPHARYNX: Unremarkable TONGUE BASE: Unremarkable HYPOPHARYNX: Unremarkable EPIGLOTTIS: Normal epiglottis. Suspected lingular tonsil. LARYNX: FALSE CORD: Unremarkable VESTIBULE: Unremarkable TRUE CORD: Unremarkable THYROID CARTILAGE: Unremarkable CRICOID CARTILAGE: Unremarkable NECK SPACES: VISCERAL SPACE: Unremarkable CAROTID SPACE: Unremarkable RETROPHARYNGEAL SPACE: Unremarkable POSTERIOR CERVICAL SPACE: Unremarkable PREVERTEBRAL SPACE: Unremarkable CAROTID CIRCULATION AND JUGULAR VEINS No vascular abnormality identified. ADENOPATHY: 4.3 x 2.8 cm oval soft tissue mass in the lateral aspect of the LEFT cervical space identified. This is posterior to the submandibular gland and anterior to the sternocleidomastoid muscle. This is inferior to the parotid gland. Small RIGHT cervical lymph nodes present. SALIVARY GLANDS: PAROTID GLANDS: Unremarkable SUBMANDIBULAR GLANDS: Unremarkable SUBLINGUAL GLANDS: Unremarkable THYROID GLAND: No thyroid nodule identified. CT/CT soft tissue neck w con Procedure Note Radiology, Radiologist, - 07/08/2023 [facility] [place] [address] [place] [address] CT Scan Report Signed Patient: Jerson Ramírez SRMR#: [id number] : 5Acct:[id number] Age/Sex: 67 / MADM Date: 07/04/23 Loc: Room:Type: [facility] Attending Dr: Levy Johnson II DO Copies to: Levy Johnson II, DO Ordering Provider: Levy Johnson II, DO Date of Service: 07/04/23 CT/CT soft tissue neck w con: enlargedlymphnode CT Neck with contrast TECHNIQUE: Axial imaging with 2-D reconstruction. 90cc of Isovue- 300administered. The CT exam was performed using one or more the following dose reduction techniques:Automated exposure control, adjustment of the MA and/or Kv according to patient size, or use of theiterative reconstruction technique. HISTORY: Left-sided neck lump. COMPARISON: Neck ultrasound 06/05/23 ORAL CAVITY: ANTERIOR TWO THIRDS OF THE TONGUE: Unremarkable ROOF OF THE MOUTH: Unremarkable BUCCAL CAVITY: Unremarkable FLOOR OF THE MOUTH: Unremarkable DENTITION: Unremarkable TONSILS: Unremarkable PHARYNX: NASOPHARYNX: Unremarkable OROPHARYNX: Unremarkable TONGUE BASE: Unremarkable HYPOPHARYNX: Unremarkable EPIGLOTTIS: Normal epiglottis. Suspected lingular tonsil. LARYNX: FALSE CORD: Unremarkable VESTIBULE: Unremarkable TRUE CORD: Unremarkable THYROID CARTILAGE: Unremarkable CRICOID CARTILAGE: Unremarkable NECK SPACES: VISCERAL SPACE: Unremarkable CAROTID SPACE: Unremarkable RETROPHARYNGEAL SPACE: Unremarkable POSTERIOR CERVICAL SPACE: Unremarkable PREVERTEBRAL SPACE: Unremarkable CAROTID CIRCULATION AND JUGULAR VEINS No vascular abnormality identified. ADENOPATHY: 4.3 x 2.8 cm oval soft tissue mass in the lateral aspect ofthe LEFT cervical space identified. This is posterior to the submandibular gland and anterior tothe sternocleidomastoid muscle. This is inferior to the parotid gland. Small RIGHT cervicallymph nodes present. SALIVARY GLANDS: PAROTID GLANDS: Unremarkable SUBMANDIBULAR GLANDS: Unremarkable SUBLINGUAL GLANDS: Unremarkable THYROID GLAND: No thyroid nodule identified. CT/CT soft tissue neck w con IMPRESSION: Similar 4.3 x 2.8 cm LEFT neck mass within or adjacent to the carotidspace as described above. This may be concern for enlarged lymph node. Impression dictated by: Randal Pardo M.D.07/04/2023 1:16 PM Dictation Location: [place] [address] Transcribed By: [facility] 07/04/23 1316 Dictated By: Randal Pardo DO 07/04/23 1304 Signed By: <Electronically signed by Randal Pardo DO in OV> 07/04/23 1316 Levy Johnson DO IMG CT PROCEDURES Final R esult documented in this encounter Visit Diagnoses Not on filedocumented in this encounter Care Teams National Sales Director Relationship Specialty Start Date End Date Arsalan Díaz MD [address] [place] [address] PCP - General Family Medicine 05/08/23 Maricarmen Jj NP [address] [place] [address] Nurse Practitioner Family Medicine 04/14/25 documented as of this encounter
--- OUTSIDE RECORDS SUMMARY | 2025-05-05 11:49 | XMS_ITS | Encounter Summary ---
Author Organization [facility] Address [address] [place] [address] Care Team Providers Care Contractor Broomcorn Threshing Name Role Phone Arsalan Díaz MD Primary Care Provider [phone] Maricarmen Jj LICENSED MIDWIFE Unavailable Encounter Details Date Type Department Care Team (Late st Contact Info) Description 04/09/2024 Abstract [facility] [address] [place] [address] Arsalan Díaz MD [address] [place] [address] Social History Tobacco Use Types Packs/Day Years [...] How often do you attend chur or yarsanism services? Patient declined 06/11/2023 Do you belong to any clubs o r organizations such as roman catholic groups, unions, fraEveryMove or athletic groups, or school groups? No [...] Recorded Patient Health Questionnaire-2 Score 0 03/02/2024 [facility] Occupat ionfl Health - Occupational Stress Questionnaire Answer Date [...] Office Visit [facility] [place] [address] [place] [address] Jared Linda DO [address] [place] [address] documented as of this encounter Goals Goal [...] documented as of this encounter Care Teams Contractor Broomcorn Threshing Relationship Specialty Start Date End Date Arsalan Díaz MD [address] [place] [address] PCP - General Family Medicine 05/08/23 Maricarmen Jj NP [address] [place] [address] Nurse Practitioner Family Medicine 04/14/25 documented as of this encounter
--- OUTSIDE RECORDS SUMMARY | 2025-05-05 11:49 | XMS_ITS | Encounter Summary ---
Author Organization [facility] Address [address] [place] [address] Care Team Providers Care Icer Machine Name Role Phone Arsalan Díaz MD Primary Care Provider [phone] Maricarmen Jj CONDUCTOR PULLMAN Unavailable [phone] Encounter Details Date Type Department Care Team (Late st Contact Info) Description 03/10/2024 Abstract [facility] [address] [place] [address] Arsalan Díaz MD [address] [place] [address] Social History Tobacco Use Types Packs/Day Years [...] How often do you attend chur or jew services? Patient declined 06/11/2023 Do you belong to any clubs o r organizations such as yazidism groups, unions, fraGlympse or athletic groups, or school groups? No [...] Recorded Patient Health Questionnaire-2 Score 0 03/02/2024 [facility] of Occupat ionmt Health - Occupational Stress Questionnaire Answer Date [...] Office Visit [facility] [address] [place] [address] Jared Linda DO [address] [place] [address] documented as of this encounter Goals Goal [...] documented as of this encounter Care Teams Icer Machine Relationship Specialty Start Date End Date Arsalan Díaz MD [address] [place] [address] PCP - General Family Medicine 05/08/23 Maricarmen Jj NP [address] [place] [address] Nurse Practitioner Family Medicine 04/14/25 documented as of this encounter
--- OUTSIDE RECORDS SUMMARY | 2025-05-05 11:49 | XMS_ITS | Encounter Summary ---
Author Organization [facility] Address [address] [place] [address] Care Team Providers Care Bail Bonding Agent Name Role Phone Arsalan Díaz MD Primary Care Provider [phone] Maricarmen Jj METAL EXTRUSION SUPERVISOR Unavailable Encounter Details Date Type Department Care Team (Late st Contact Info) Description 10/04/2023 Orders Only [facility] [address] [place] [address] Arsalan Díaz MD [address] [place] [address] Social History Tobacco Use Types Packs/Day Years [...] How often do you attend chur or latter-day services? Patient declined 06/11/2023 Do you belong to any clubs o r organizations such as jain groups, unions, fraMaya's Mom or athletic groups, or school groups? No [...] Recorded Patient Health Questionnaire-2 Score 0 05/09/2023 [facility] of Occupat ionct Health - Occupational Stress Questionnaire Answer Date [...] place to sleep or slept in a custodial (including now)? No 06/11/2023 Sex and Gender [...] Office Visit [facility] [address] [place] [address] Jared Linda DO [address] [place] [address] documented as of this encounter Procedures Procedure Name Priority Date/Time Associated Diagnosis Comments SCANNED LABS Routine 10/04/2023 12:20 PM EDT documented in this encounter Results * SCANNED LABS (10/04/2023 12:20 PM EDT) us Arsalan Díaz MD LAB CHG PERFORMABLES Final Res ult documented in this encounter Visit Diagnoses Not on filedocumented in this encounter Care Teams Bail Bonding Agent Relationship Specialty Start Date End Date Arsalan Díaz MD [address] [place] [address] PCP - General Family Medicine 05/08/23 Maricarmen Jj NP [address] [place] [address] Nurse Practitioner Family Medicine 04/14/25 documented as of this encounter
--- OUTSIDE RECORDS SUMMARY | 2025-05-05 11:49 | XMS_ITS | Encounter Summary ---
Author Organization [facility] Address [address] [place] [address] Care Team Providers Care Manager Trading Name Role Phone Arsalan Díaz MD Primary Care Provider [phone] Maricarmen Jj HAND STRIPPER Unavailable Encounter Details Date Type Department Care Team (Late st Contact Info) Description 10/01/2023 Orders Only [facility] [address] [place] [address] Arsalan Díaz MD [address] [place] [address] Social History Tobacco Use Types Packs/Day Years [...] How often do you attend chur or catholic services? Patient declined 06/11/2023 Do you belong to any clubs o r organizations such as pentecostalism groups, unions, [email or web address] or athletic groups, or school groups? No [...] Recorded Patient Health Questionnaire-2 Score 0 05/09/2023 [facility] of Occupat ionia Health - Occupational [...] place to sleep or slept in a longterm (including now)? No 06/11/2023 Sex and Gender [...] Office Visit [facility] [address] [place] [address] Jared Linda DO [address] [place] [address] documented as of this encounter Procedures Procedure Name Priority Date/Time Associated Diagnosis Comments HEMOCHROMA HFE GENE ([place]) Routine 09/23/2023 9:52 AM EDT documented in this encounter Results * HEMOCHROMA HFE GENE ([place]) (09/23/2023 9:52 AM EDT) us Arsalan Díaz MD LAB BLOOD ORDERABLES Final Res ult documented in this encounter Visit Diagnoses Not on filedocumented in this encounter Care Teams Manager Trading Relationship Specialty Start Date End Date Arsalan Díaz MD [address] [place] [address] PCP - General Family Medicine 05/08/23 Maricarmen Jj NP [address] [place] [address] Nurse Practitioner Family Medicine 04/14/25 documented as of this encounter
--- OUTSIDE RECORDS SUMMARY | 2025-05-05 11:49 | XMS_ITS | Encounter Summary ---
Author Organization [facility] Address [address] [place] [address] Care Team Providers Care Beauty Counselor Name Role Phone Arsalan Díaz MD Primary Care Provider [phone] Maricarmen Jj FIBERGLASS TECHNICIAN Unavailable Encounter Details Date Type Department Care Team (Late st Contact Info) Description 04/03/2024 Abstract [facility] [address] [place] [address] Audrey Scruggs MA Social History Tobacco Use [...] often do you attend chur ch or jain services? Patient declined 06/11/2023 Do you belong to any clubs o r organizations such as spiritism groups, unions, fraternal or athletic groups, or [...] Recorded Patient Health Questionnaire-2 Score 0 03/02/2024 [facility] of Occupat ional Health - Occupational [...] Visit [facility] [address] [place] [address] Jared Linda DO [address] [place] [address] documented as of this encounter Goals Goal [...] documented as of this encounter Care Teams Beauty Counselor Relationship Specialty Start Date End Date Arsalan Díaz MD [address] [place] [address] PCP - General Family Medicine 05/08/23 Maricarmen Jj NP [address] [place] [address] Nurse Practitioner Family Medicine 04/14/25 documented as of this encounter
--- OUTSIDE RECORDS SUMMARY | 2025-05-05 11:49 | XMS_ITS | Encounter Summary ---
Author Organization [facility] Address [address] [facility] [[email or web address] [place] [address] Care Team Providers Care Educational Speech Language Clinician Name Role Phone Arsalan Díaz MD Primary Care Provider [phone] Maricarmen Jj NP Unavailable Encounter Details Date Type Department Care Team (Late st Contact Info) Description 09/22/2024 Abstract [facility] [address] [place] [address] Shea Younger NP [address] [place] [address] Social History Tobacco Use Types Packs/Day Years [...] How often do you attend chur or hindu services? Patient declined 08/17/2024 Do you belong to any clubs o r organizations such as latter-day groups, unions, fraternal or athletic groups, or [...] Recorded Patient Health Questionnaire-2 Score 0 08/18/2024 [facility] of Occupat ional Health - Occupational [...] in a residential (including now)? No 06/11/2023 Housing Stability Vital Sign Answer Jacek e Recorded In the last 12 months, was t here a time when you were not able to pay the mortgage or rent on time? No 08/17/2024 Number of Times Moved in the Last Year Not on fi le 08/17/2024 At any time in the past 12 m [facility], were you homeless or living in a residential (including now)? No 08/17/2024 Sex and Gender [...] AM EDT Office Visit [facility] [address] [place] [address] Jared Linda DO [address] [place] [address] documented as of this encounter Goals Goal [...] documented as of this encounter Care Teams Educational Speech Language Clinician Relationship Specialty Start Date End Date Arsalan Díaz MD [address] [place] [address] PCP - General Family Medicine 05/08/23 Maricarmen Jj MECHANICAL AND AUTO BODY CAR CHECKER [address] [place] [address] Nurse Practitioner Family Medicine 04/14/25 documented as of this encounter
--- OUTSIDE RECORDS SUMMARY | 2025-05-05 11:49 | XMS_ITS | Encounter Summary ---
Author Organization [facility] Address [address] [place] [address] Care Team Providers Care Maori Liaison Adviser Name Role Phone Arsalan Díaz MD Primary Care Provider [phone] Maricarmen Jj NP Unavailable Encounter Details Date Type Department Care Team (Late st Contact Info) Description 10/11/2023 Orders Only [facility] [address] [place] [address] Unallocated, N[facility] Provider, [address] [place], [place] [address] Social History Tobacco Use Types Packs/Day Years [...] How often do you attend chur or sikhism services? Patient declined 06/11/2023 Do you belong to any clubs o r organizations such as gnosticist groups, unions, fraFurnésh or athletic groups, or school groups? No [...] Recorded Patient Health Questionnaire-2 Score 0 05/09/2023 [facility] of Occupat ionnd Health - Occupational Stress Questionnaire Answer Date [...] place to sleep or slept in a detention (including now)? No 06/11/2023 Sex and Gender [...] Office Visit [facility] [address] [place] [address] Jared Linda, [address] [place] [address] documented as of this encounter Procedures Procedure Name Priority Date/Time Associated Diagnosis Comments CBC Routine 10/11/2023 1:15 PM EST COMPREHENSIVE METABOLIC PANEL Routine 10/11/2023 1:15 PM EST documented in this encounter Results * CBC (10/11/2023 1:15 PM EST) Blood Venous blood specimen / Unknown us [facility] Provider Unallocated MD LAB BLOOD ORDERABLE S Final Result * Comprehensive metabolic panel (10/11/2023 1:15 PM EST) Blood Venous blood specimen / Unknown us [facility] Provider Unallocated MD LAB BLOOD ORDERABLE S Final Result documented in this encounter Visit Diagnoses Not on filedocumented in this encounter Care Teams Maori Liaison Adviser Relationship Specialty Start Date End Date Arsalan Díaz MD [address] [place] [address] PCP - General Family Medicine 05/08/23 Maricarmen Jj NP [address] [place] [address] Nurse Practitioner Family Medicine 04/14/25 documented as of this encounter
--- OUTSIDE RECORDS SUMMARY | 2025-05-05 11:49 | XMS_ITS | Encounter Summary ---
Author Organization [facility] Address [address] [facility] [place] [address] Care Team Providers Care Construction Plumber Name Role Phone Arsalan Díaz MD Primary Care Provider [phone] Maricarmen Jj NP Unavailable Encounter Details Date Type Department Care Team (Late st Contact Info) Description 09/22/2024 Abstract [facility] [address] [place] [address] Shea Younger NP [address] [place] [address] Social History Tobacco Use Types Packs/Day Years [...] How often do you attend chur or spiritism services? Patient declined 08/17/2024 Do you belong to any clubs o r organizations such as samaritan groups, unions, fraternal or athletic groups, or [...] Recorded Patient Health Questionnaire-2 Score 0 08/18/2024 [facility] of Occupat ional Health - Occupational [...] in a fdc (including now)? No 06/11/2023 Housing Stability Vital Sign Answer Jacek e Recorded In the last 12 months, was t here a time when you were not able to pay the mortgage or rent on time? No 08/17/2024 Number of Times Moved in the Last Year Not on fi le 08/17/2024 At any time in the past 12 m [facility], were you homeless or living in a fdc (including now)? No 08/17/2024 Sex and Gender [...] AM EDT Office Visit [facility] [address] [place] [address] Jared Linda DO [address] [place] [address] documented as of this encounter Goals Goal [...] documented as of this encounter Care Teams Construction Plumber Relationship Specialty Start Date End Date Arsalan Díaz MD [address] [place] [address] PCP - General Family Medicine 05/08/23 Maricarmen Jj DIRECTOR SERVICE [address] [place] [address] Nurse Practitioner Family Medicine 04/14/25 documented as of this encounter
--- OUTSIDE RECORDS SUMMARY | 2025-05-05 11:49 | XMS_ITS | Encounter Summary ---
Author Organization [facility] Address [address] [place] [address] Care Team Providers Care Zoology Technical Officer Name Role Phone Arsalan Díaz MD Primary Care Provider [phone] Maricarmen Jj CRIPPLE CHASER Unavailable [phone] Encounter Details Date Type Department Care Team (Late st Contact Info) Description 07/16/2023 External Result Encounter [facility] External Department Unsolicited Jared Linda, DO [address] [place] [address] Social History Tobacco Use Types Packs/Day Years [...] often do you attend chur ch or anglican services? Patient declined 06/11/2023 Do you belong to any clubs o r organizations such as uatsdin groups, unions, fraternal or athletic groups, or [...] Recorded Patient Health Questionnaire-2 Score 0 05/09/2023 [facility] - Occupational Stress Questionnaire Answer Date [...] in a chcf (including now)? No 06/11/2023 Sex and Gender [...] Office Visit [facility] [address] [place] [address] Jared Linda, [address] [place] [address] documented as of this encounter Procedures Procedure Name Priority Date/Time Associated Diagnosis Comments ECG 12-LEAD 07/16/2023 9:13 AM EDT documented in this encounter Results * ECG 12 lead (07/16/2023 9:13 AM EDT) 07/16/2023 9:13 AM EDT Narrative [facility] 07/17/2023 9:44 AM EDT [place] [id number] Electrocardiograph Report Signed Patient: Jerson Ramírez MR#: [id number] : 1955 Acct:[id number] Age/Sex: 67 / M ADM Date: 07/16/23 Loc: PS Room: Type: REG CLI Attending Dr: Jared Linda DO Ordering Provider: Jared Linda DO Date of Service: 07/16/23 ECG/ECG 12 lead ECG: PST Copies to: Test Reason : Blood Pressure : / mmHG Vent. Rate : 084 BPM Atrial Rate : 084 BPM P-R Int : 194 ms QRS Dur : 138 ms QT Int : 390 ms P-R-T Axes : 057 048 244 degrees QTc Int : 460 ms Normal sinus rhythm Left bundle branch block Abnormal ECG No previous ECGs available Confirmed by KALEB HERNANDEZ MD ([id number]) on 07/16/2023 10:37:29 PM Referred By: LAURY Electronically Signed By:KALEB HERNANDEZ MD Transcribed By: MUS Signed By Kaleb Hernandez MD [id number] Procedure Note Kaleb Hernandez MD - 07/17/2023 [place] [id number] Electrocardiograph Report Signed Patient: Jerson Ramírez SRMR#: [id number] : 5Acct:[id number] Age/Sex: 67 / MADM Date: 07/16/23 Loc: PS Room:Type: REG CLI Attending Dr: Jared Linda DO Ordering Provider: Jared Linda DO Date of Service: 07/16/23 ECG/ECG 12 lead ECG: PST Copies to: Test Reason : Blood Pressure : / mmHG Vent. Rate : 084 BPM Atrial Rate : 084 BPM P-R Int : 194 ms QRS Dur : 138 ms QT Int : 390 ms P-R-T Axes : 057 048 244 degrees QTc Int : 460 ms Normal sinus rhythm Left bundle branch block Abnormal ECG No previous ECGs available Confirmed by KALEB HERNANDEZ MD ([id number]) on 07/16/2023 10:37:29 PM Referred By: LAURY Electronically Signed By:KALEB MAHMOOD Transcribed By: MUS Signed By Kaleb Hernandez MD [id number] us Jared Linda DO ECG ORDERABLES Final Resul t [facility] [address] [place] [address], documented in this encounter Visit Diagnoses Not on filedocumented in this encounter Care Teams Zoology Technical Officer Relationship Specialty Start Date End Date Arsalan Díaz MD [address] [place] [address] PCP - General Family Medicine 05/08/23 Maricarmen Jj NP [address] [place] [address] Nurse Practitioner Family Medicine 04/14/25 documented as of this encounter
--- OUTSIDE RECORDS SUMMARY | 2025-05-05 11:49 | XMS_ITS | Encounter Summary ---
Author Organization [facility] Address [address] [place] [address] Care Team Providers Care Manager Implementation Name Role Phone Arsalan Díaz MD Primary Care Provider [phone] Maricarmen Jj TAXONOMY TEACHER Unavailable Encounter Details Date Type Department Care Team (Late st Contact Info) Description 07/05/2023 Abstract [facility] [address] [place] [address] Jared Linda, [address] [place] [address] Social History Tobacco Use Types Packs/Day Years Used Date Smoking Tobacco: Every Day Cigars Passive Smoke Exposure: Never Smokeless Tobacco: Current Tobacco Cessation:Ready to Q uit: Not Asked; Counseling Given: Not Answered Comments:Start smoking : 20 [...] How often do you attend chur or muslim services? Patient declined 06/11/2023 Do you belong to any clubs o r organizations such as taoism groups, unions, fraternal or athletic groups, or [...] Recorded Patient Health Questionnaire-2 Score 0 05/09/2023 [facility]at ional [facility] - Occupational Stress [...] Office Visit [facility] [address] [place] [address] Jared Linda, [address] [place] [address] documented as of this encounter Visit Diagnoses Not on filedocumented in this encounter Care Teams Manager Implementation Relationship Specialty Start Date End Date Arsalan Díaz MD [address] [place] [address] PCP - General Family Medicine 05/08/23 Maricarmen Jj NP [address] [place] [address] Nurse Practitioner Family Medicine 04/14/25 documented as of this encounter
--- OUTSIDE RECORDS SUMMARY | 2025-05-05 11:49 | XMS_ITS | Encounter Summary ---
Author Organization [facility] Address [address] [place] [address] Care Team Providers Care Performance Architect Name Role Phone Arsalan Díaz MD Primary Care Provider [phone] Maricarmen Jj VIRGINIA LINE ATTENDANT Unavailable [phone] Encounter Details Date Type Department Care Team (Late st Contact Info) Description 07/11/2023 Abstract [facility] [address] [place] [address] Babs Alba MA Social History Tobacco Use Types Packs/Day [...] often do you attend chur ch or confucianist services? Patient declined 06/11/2023 Do you belong to any clubs o r organizations such as lutheran groups, unions, fraternal or athletic groups, or [...] Score 0 05/09/2023 [facility] - Occupational Stress Questionnaire Answer Date [...] place to sleep or slept in a care home (including now)? No 06/11/2023 Sex and Gender [...] Office Visit [facility] [address] [place] [address] Jared Linda DO [address] [place] [address] documented as of this encounter Visit Diagnoses Not on filedocumented in this encounter Care Teams Performance Architect Relationship Specialty Start Date End Date Arsalan Díaz MD [address] [place] [address] PCP - General Family Medicine 05/08/23 Maricarmen Jj VIRGINIA LINE ATTENDANT [address] [place] [address] Nurse Practitioner Family Medicine 04/14/25 documented as of this encounter
--- OUTSIDE RECORDS SUMMARY | 2025-05-05 11:49 | XMS_ITS | Encounter Summary ---
Author Organization [facility] Address [address] [place] [address] Care Team Providers Care Inside Horticultural Specialty Grower Name Role Phone Arsalan Díaz MD Primary Care Provider [phone] Maricarmen Jj CHILD CARE ASSOCIATE Unavailable Encounter Details Date Type Department Care Team (Late st Contact Info) Description 10/16/[address] [facility] [address] [place] [address] Arsalan Díaz MD [address] [place] [address] Social History Tobacco Use Types Packs/Day Years [...] How often do you attend chur or anabaptism services? Patient declined 06/11/2023 Do you belong to any clubs o r organizations such as denominational groups, unions, fraNaroomi or athletic groups, or school groups? No [...] Recorded Patient Health Questionnaire-2 Score 0 05/09/2023 [facility] - Occupational Stress Questionnaire Answer Date [...] place to sleep or slept in a half-way (including now)? No 06/11/2023 Sex and Gender [...] Office Visit [facility] [address] [place] [address] aJred Linda DO [address] [place] [address] documented as of this encounter Visit Diagnoses Not on filedocumented in this encounter Care Teams Inside Horticultural Specialty Grower Relationship Specialty Start Date End Date Arsalan Díaz MD [address] [place] [address] PCP - General Family Medicine 05/08/23 Maricarmen Jj NP [address] [place] [address] Nurse Practitioner Family Medicine 04/14/25 documented as of this encounter
--- OUTSIDE RECORDS SUMMARY | 2025-05-05 11:49 | XMS_ITS | Encounter Summary ---
Author Organization [facility] Address [address] [place] [address] Care Team Providers Care Machine Maintenance Servicer Name Role Phone Arsalan Díaz MD Primary Care Provider [phone] Maricarmen Jj MERCHANDISE FLOW MANAGER Unavailable Encounter Details Date Type Department Care Team (Late st Contact Info) Description 07/04/2023 External Result Encounter [facility] External Department Unsolicited Levy Johnson, DO [address] [place] [address] Social History Tobacco Use Types Packs/Day Years [...] often do you attend chur ch or yarsanism services? Patient declined 06/11/2023 Do you belong to any clubs o r organizations such as restorationism groups, unions, fraternal or athletic groups, or [...] Recorded Patient Health Questionnaire-2 Score 0 05/09/2023 [facility] of Occupat ional [facility] - Occupational Stress Questionnaire Answer Date Recorded [...] Office Visit [facility] [address] [place] [address] Jared Linda DO [address] [place] [address] documented as of this encounter Procedures Procedure Name Priority Date/Time Associated Diagnosis Comments CT ABDOMEN PELVIS W IV CONTRAST 07/04/2023 1:47 PM EDT documented in this encounter Results * CT abdomen pelvis w IV contrast (07/04/2023 1:47 PM EDT) Anatomical Region Laterality Modality Body, Pelvis, Abdomen Computed T omography 07/04/2023 1:47 PM EDT Impressions 07/08/2023 11:[address] evidence of involvement of the chest, abdomen or pelvis. No acute process is seen. Impression dictated by: Cy Fortune Jr., D.OGene07/04/2023 1:51 PM Dictation Location: [place] [address] Transcribed By: [facility] 07/04/23 1351 Dictated By: Cy Fortune Jr, DO 07/04/23 1347 Signed By: <Electronically signed by Cy Fortune Jr, DO in OV> 07/04/23 1351 Narrative 07/08/2023 11:23 AM EDT [facility] Main [place] [address] [place] [address] CT Scan Report Signed Patient: Jerson Ramírez SR MR#: [id number] : 1955 Acct:[id number] Age/Sex: 67 / M ADM Date: 07/04/23 Loc: Room: Type: [facility] RCR Attending Dr: Levy Johnson II, DO Copies to: Levy Johnson II, DO Ordering Provider: Levy Johnson II, DO Date of Service: 07/04/23 CT/CT abdomen pelvis w con: initial staging ([id number]) CT/CT chest w con: initial staging CT CHEST, ABDOMEN AND PELVIS WITH INTRAVENOUS CONTRAST: CLINICAL HISTORY: Hairy cell leukemia. COMPARISON: None TECHNIQUE: TECHNIQUE: Spiral images were obtained through the chest, abdomen and pelvis following the administration of IV contrast. This CT exam was performed using one or more following dose reduction techniques: Automated exposure control, adjustment of the mA and/or kV according to patient size, or use of iterative reconstruction technique. FINDINGS: CT chest: Mediastinum:Thoracic aorta appears normal in caliber. Pulmonary trunk appears nondilated. No pleural effusion. The lymphadenopathy. The esophagus is grossly unremarkable. Lungs:Deep and atelectatic changes. No consolidation pneumothorax or pleural effusion. Soft tissues/Bones: Soft tissues demonstrate no acute findings. Osseous structures demonstrate degenerative change. CT abdomen and pelvis: Organs:Liver gallbladder portal vein spleen pancreas adrenal glands and kidneys all appear unremarkable. Abdominal aorta appears normal in caliber. GI: Stomach is grossly unremarkable. Small bowel appears nondilated. No acute colonic abnormality.[ Pelvis:[Urinary bladder is grossly unremarkable. Prostate gland normal in size.] Peritoneum/Retroperitoneum:No free air, free fluid or lymphadenopathy.[ Abd wall/Bones:Abdominal wall demonstrates no acute findings. Osseous structures demonstrate degenerative change.[ CT/CT chest w con Procedure Note Radiology, Radiologist, - 07/08/2023 [facility] Main [place] [address] [place] [address] CT Scan Report Signed Patient: Jerson Ramírez SRMR#: [id number] : 5Acct:[id number] Age/Sex: 67 / MADM Date: 07/04/23 Loc: Room:Type: [facility] Attending Dr: Levy Johnson II DO Copies to: Levy Johnson II, DO Ordering Provider: Levy Johnson II, DO Date of Service: 07/04/23 CT/CT abdomen pelvis w con: initial staging ([id number]) CT/CT chest w con: initial staging CT CHEST, ABDOMEN AND PELVIS WITH INTRAVENOUS CONTRAST: CLINICAL HISTORY: Hairy cell leukemia. COMPARISON: None TECHNIQUE: TECHNIQUE: Spiral images were obtained through the chest,abdomen and pelvis following the administration of IV contrast. This CT exam was performed using oneor more following dose reduction techniques: Automated exposure control, adjustment of the mAand/or kV according to patient size, or use of iterative reconstruction technique. FINDINGS: CT chest: Mediastinum:Thoracic aorta appears normal in caliber. Pulmonary trunkappears nondilated. No pleural effusion. The lymphadenopathy. The esophagus is grossly unremarkable. Lungs:Deep and atelectatic changes. No consolidation pneumothorax orpleural effusion. Soft tissues/Bones: Soft tissues demonstrate no acute findings. Osseousstructures demonstrate degenerative change. CT abdomen and pelvis: Organs:Liver gallbladder portal vein spleen pancreas adrenal glands andkidneys all appear unremarkable. Abdominal aorta appears normal in caliber. GI: Stomach is grossly unremarkable. Small bowel appears nondilated. Noacute colonic abnormality.[ Pelvis:[Urinary bladder is grossly unremarkable. Prostate gland normal insize.] Peritoneum/Retroperitoneum:No free air, free fluid or lymphadenopathy.[ Abd wall/Bones:Abdominal wall demonstrates no acute findings. Osseousstructures demonstrate degenerative change.[ CT/CT chest w con IMPRESSION: No CT evidence of involvement of the chest, abdomen or pelvis. No acuteprocess is seen. Impression dictated by: Cy Fortune Jr., DGeneOGene07/04/2023 1:51 PM Dictation Location: [facility]- Transcribed By: [facility] 07/04/23 1351 Dictated By: Cy Fortune Jr, DO 07/04/23 1347 Signed By: <Electronically signed by Cy Fortune Jr, DO inOV> 07/04/23 1351 Levy Johnson DO IMG CT PROCEDURES Final R esult documented in this encounter Visit Diagnoses Not on filedocumented in this encounter Care Teams Machine Maintenance Servicer Relationship Specialty Start Date End Date Arsalan Díaz MD [address] [place] [address] PCP - General Family Medicine 05/08/23 Maricarmen Jj NP [address] [place] [address] Nurse Practitioner Family Medicine 04/14/25 documented as of this encounter
--- OUTSIDE RECORDS SUMMARY | 2025-05-05 11:49 | XMS_ITS | Encounter Summary ---
Author Organization [facility] Address [address] [place] [address] Care Team Providers Care Tin Pot Operator Name Role Phone Arsalan Díaz MD Primary Care Provider [phone] Maricarmen Jj CNC WOOD LATHE OPERATOR Unavailable Encounter Details Date Type Department Care Team (Late st Contact Info) Description 07/04/2023 External Result Encounter [facility] External Department Unsolicited Levy Johnson, DO [address] [place] [address] Social History Tobacco Use Types Packs/Day Years [...] often do you attend chur ch or orthodoxy services? Patient declined 06/11/2023 Do you belong to any clubs o r organizations such as islam groups, unions, fraternal or athletic groups, or [...] Recorded Patient Health Questionnaire-2 Score 0 05/09/2023 [facility] of Occupat ional [facility] - Occupational Stress Questionnaire Answer Date [...] Office Visit [facility] [address] [place] [address] Jared Linda, [address] [place] [address] documented as of this encounter Procedures Procedure Name Priority Date/Time Associated Diagnosis Comments CT HEAD W AND WO IV CONTRAST 07/04/2023 12:57 PM EDT documented in this encounter Results * CT head w and wo IV contrast (07/04/2023 12:57 PM EDT) Anatomical Region Laterality Modality Head, Neck Computed Tomogra phy 07/04/2023 12:5 7 PM EDT Impressions 07/08/2023 11:22 AM EDT No acute intracranial findings. Chronic findings. No pathologic enhancement. Impression dictated by: Randal Pardo M.D.07/04/2023 1:04 PM Dictation Location: [place] [address] Transcribed By: [facility] 07/04/23 1304 Dictated By: Randal Pardo DO 07/04/23 1257 Signed By: <Electronically signed by Randal Pardo DO in OV> 07/04/23 1304 Narrative 07/08/2023 11:22 AM EDT [facility] Main [place] [address] [place] [address] CT Scan Report Signed Patient: Jerson Ramírez SR MR#: [id number] : 1955 Acct:[id number] Age/Sex: 67 / M ADM Date: 07/04/23 Loc: Room: Type: [facility] Attending Dr: Levy Johnson II DO Copies to: Levy Johnson II, DO Ordering Provider: Levy Johnson II, DO Date of Service: 07/04/23 CT/CT head/brain wo/w con: initial staging Enhanced and unenhanced head CT TECHNIQUE: Contiguous axial imaging of the head.90 cc of Isovue-300The CT exam was performed using one or more the following dose reduction techniques: Automated exposure control, adjustment of the MA and/or Kv according to patient size, or use of the iterative reconstruction technique. COMPARISON: None HISTORY: Lump in the LEFT side of the neck. Leukemia. VENTRICLES: Within normal limits ATROPHY: Mild generalized atrophy BRAIN PARENCHYMA: Remote RIGHT basal ganglia lacunar infarction. HEMORRHAGE: None HERNIATION: No mass effect or herniation INFARCTION: No recent vascular distribution infarction is seen. EXTRA-AXIAL FLUID COLLECTIONS None MIDBRAIN: Unremarkable SHERIF: Unremarkable MEDULLA: Unremarkable SINUSES: Unremarkable ORBITS: Grossly unremarkable MASTOIDS: Unremarkable BONY STRUCTURES Intact ADDITIONAL FINDINGS: No pathologic enhancement. CT/CT head/brain wo/w con Procedure Note Radiology, Radiologist, - 07/08/2023 [facility] [place] [address] [place] [address] CT Scan Report Signed Patient: Jerson Ramírez SRMR#: [id number] : 5Acct:[id number] Age/Sex: 67 / MADM Date: 07/04/23 Loc: Room:Type: [facility] Attending Dr: Levy Johnson II DO Copies to: Levy Johnson II, DO Ordering Provider: Levy Johnson II, DO Date of Service: 07/04/23 CT/CT head/brain wo/w con: initial staging Enhanced and unenhanced head CT TECHNIQUE: Contiguous axial imaging of the head.90 cc of Isovue-300The CTexam was performed using one or more the following dose reduction techniques: Automated exposurecontrol, adjustment of the MA and/or Kv according to patient size, or use of the iterativereconstruction technique. COMPARISON: None HISTORY: Lump in the LEFT side of the neck. Leukemia. VENTRICLES: Within normal limits ATROPHY: Mild generalized atrophy BRAIN PARENCHYMA: Remote RIGHT basal ganglia lacunar infarction. HEMORRHAGE: None HERNIATION: No mass effect or herniation INFARCTION: No recent vascular distribution infarction is seen. EXTRA-AXIAL FLUID COLLECTIONS None MIDBRAIN: Unremarkable SHERIF: Unremarkable MEDULLA: Unremarkable SINUSES: Unremarkable ORBITS: Grossly unremarkable MASTOIDS: Unremarkable BONY STRUCTURES Intact ADDITIONAL FINDINGS: No pathologic enhancement. CT/CT head/brain wo/w con IMPRESSION: No acute intracranial findings. Chronic findings. No pathologicenhancement. Impression dictated by: Randal Pardo M.D.07/04/2023 1:04 PM Dictation Location: [place] [address] Transcribed By: [facility] 07/04/23 1304 Dictated By: Randal Pardo DO 07/04/23 1257 Signed By: <Electronically signed by Randal Pardo DO in OV> 07/04/23 1304 Levy Johnson DO IMG CT PROCEDURES Final R esult documented in this encounter Visit Diagnoses Not on filedocumented in this encounter Care Teams Tin Pot Operator Relationship Specialty Start Date End Date Arsalan Díaz MD [address] [place] [address] PCP - General Family Medicine 05/08/23 Maricarmen Jj NP [address] [place] [address] Nurse Practitioner Family Medicine 04/14/25 documented as of this encounter
--- OUTSIDE RECORDS SUMMARY | 2025-05-05 11:49 | XMS_ITS | Encounter Summary ---
Author Organization [facility] Address [address] [place] [address] Care Team Providers Care Theater Teacher Name Role Phone Arsalan Díaz MD Primary Care Provider [phone] Maricarmen Jj NP Unavailable [phone] Reason for Visit * Reason Comments Med Refill Encounter Details Date Type Department Care Team (Late st Contact Info) Description 03/06/2024 Refill [facility] [address] [place] [address] Shea Younger NP [address] [place] [address] Social History Tobacco Use Types Packs/Day Years [...] How often do you attend chur or oriental orthodox services? Patient declined 06/11/2023 Do you belong [...] Patient Health Questionnaire-2 Score 0 03/02/2024 [facility] of Occupat ional Health - [...] Office Visit [facility] [address] [place] [address] Jared Linda DO [address] [place] [address] documented as of this encounter Goals Goal [...] Diagnosed Date Patient on antidepressant monitoring plan 04/01/ 2024 Baseline PHQ-9 03/02/2024 Assessment Noted Time PHQ-9 Depression Total Score: 0 03/02/20 24 11:00 AM EDT documented as of this encounter Care Teams Theater Teacher Relationship Specialty Start Date End Date Arsalan Díaz MD [address] [place] [address] PCP - General Family Medicine 05/08/23 Maricarmen Jj NP [address] [place] [address] Nurse Practitioner Family Medicine 04/14/25 documented as of this encounter
--- OUTSIDE RECORDS SUMMARY | 2025-05-05 11:49 | XMS_ITS | Encounter Summary ---
Author Organization [facility] Address [address] [place] [address] Care Team Providers Care Bus Washer Name Role Phone Arsalan Díaz MD Primary Care Provider [phone] Maricarmen Jj SENIOR BUSINESS DEVELOPMENT ANALYST Unavailable [phone] Encounter Details Date Type Department Care Team (Late st Contact Info) Description 04/10/2024 Abstract [facility] [address] [place] [address] Babs Alba MA Social History Tobacco Use [...] often do you attend chur ch or rastafarian services? Patient declined 06/11/2023 Do you belong to any clubs o r organizations such as presybeterian groups, unions, fraternal or athletic groups, or [...] Recorded Patient Health Questionnaire-2 Score 0 03/02/2024 [facility] - Occupational Stress Questionnaire Answer [...] Office Visit [facility] [address] [place] [address] Jared Linda DO [address] [place] [address] documented as of this encounter Goals Goal [...] documented as of this encounter Care Teams Bus Washer Relationship Specialty Start Date End Date Arsalan Díaz MD [address] [place] [address] PCP - General Family Medicine 05/08/23 Maricarmen Jj NP [address] [place] [address] Nurse Practitioner Family Medicine 04/14/25 documented as of this encounter
--- OUTSIDE RECORDS SUMMARY | 2025-05-05 11:49 | XMS_ITS | Encounter Summary ---
Author Organization [facility] Address [address] [place] [address] Care Team Providers Care Sedimentationist Name Role Phone Arsalan Díaz MD Primary Care Provider [phone] Maricarmen Jj TACK PULLER Unavailable [phone] Encounter Details Date Type Department Care Team (Late st Contact Info) Description 10/22/2023 Abstract [facility] [address] [place] [address] Arsalan Díaz MD [address] [place] [address] Social History Tobacco Use Types Packs/Day Years [...] How often do you attend chur or hoahaoism services? Patient declined 06/11/2023 Do you belong to any clubs o r organizations such as jewish groups, unions, fraAdapt or athletic groups, or school groups? No [...] Recorded Patient Health Questionnaire-2 Score 0 05/09/2023 [facility] Health - Occupational Stress Questionnaire Answer Date [...] place to sleep or slept in a fpc (including now)? No 06/11/2023 Sex and Gender [...] Office Visit [facility] [address] [place] [address] Jared Linda DO [address] [place] [address] documented as of this encounter Visit Diagnoses Not on filedocumented in this encounter Care Teams Sedimentationist Relationship Specialty Start Date End Date Arsalan Díaz MD [address] [place] [address] PCP - General Family Medicine 05/08/23 Maricarmen Jj NP [address] [place] [address] Nurse Practitioner Family Medicine 04/14/25 documented as of this encounter
--- OUTSIDE RECORDS SUMMARY | 2025-05-05 11:49 | XMS_ITS | Encounter Summary ---
Author Organization [facility] Address [address] [place] [address] Care Team Providers Care Para Educator Name Role Phone Arsalan Díaz MD Primary Care Provider [phone] Maricarmen Jj MOBILE APPLICATION ARCHITECT Unavailable Encounter Details Date Type Department Care Team (Late st Contact Info) Description 10/21/2023 Abstract [facility] [address] [place] [id number] Audrey Scruggs MA Social History Tobacco Use [...] often do you attend chur ch or faith services? Patient declined 06/11/2023 Do you belong to any clubs o r organizations such as christianity groups, unions, fraternal or athletic groups, or [...] Recorded Patient Health Questionnaire-2 Score 0 05/09/2023 [facility] Occupat ional Health - Occupational [...] Office Visit [facility] [address] [place] [phone] Jared Linda DO [address] [place] [address] documented as of this encounter Visit Diagnoses Not on filedocumented in this encounter Care Teams Para Educator Relationship Specialty Start Date End Date Arsalan Díaz MD [address] [place] [address] PCP - General Family Medicine 05/08/23 Maricarmen Jj NP [address] [place] [phone] Nurse Practitioner Family Medicine 04/14/25 documented as of this encounter
--- OUTSIDE RECORDS SUMMARY | 2025-05-05 11:49 | XMS_ITS | Encounter Summary ---
Author Organization [facility] Address [address] [place] [address] Care Team Providers Care Intelligent Systems Engineer Name Role Phone Arsalan Díaz MD Primary Care Provider [phone] Maricarmen Jj [employer] Unavailable Encounter Details Date Type Department Care Team (Late st Contact Info) Description 11/10/2024 Abstract [facility] [address] [place] [phone] Arsalan Díaz MD [address] [place] [address] Social History Tobacco Use Types Packs/Day Years [...] attend chur or evangelical services? Patient declined 08/17/2024 Do you belong to any clubs o r organizations such as uatsdin groups, unions, fraCardioKinetix or athletic groups, or school groups? No [...] Recorded Patient Health Questionnaire-2 Score 0 08/18/2024 [facility] of Occupat ional Health - Occupational Stress [...] in a half-way (including now)? No 06/11/2023 Housing Stability Vital Sign Answer Jacek e Recorded In the last 12 months, was t here a time when you were not able to pay the mortgage or rent on time? No 08/17/2024 Number of Times Moved in the Last Year Not on fi le 08/17/2024 At any time in the past 12 m [facility], were you homeless or living in a half-way (including now)? No 08/17/2024 Sex and Gender [...] AM EDT Office Visit [facility] [address] [place] [address] Jared Linda, [address] [place] [address] documented as of this encounter Goals Goal [...] documented as of this encounter Care Teams Intelligent Systems Engineer Relationship Specialty Start Date End Date Arsalan Díaz MD [address] [place] [address] PCP - General Family Medicine 05/08/23 Maricarmen Jj [employer] [address] [place] [address] Nurse Practitioner Family Medicine 04/14/25 documented as of this encounter
--- OUTSIDE RECORDS SUMMARY | 2025-05-05 11:49 | XMS_ITS | Encounter Summary ---
Author Organization [facility] Address [address] [place] [address] Care Team Providers Care Vault Cashier Name Role Phone Arsalan Díaz MD Primary Care Provider Maricarmen Jj BEAM WARPER Unavailable [phone] Encounter Details Date Type Department Care Team (Late st Contact Info) Description 10/21/2023 Abstract [facility] [address] [place] [address] Arsalan Díaz MD [address] [place] [address] Social History Tobacco Use Types Packs/Day Years [...] How often do you attend chur or taoism services? Patient declined 06/11/2023 Do you belong to any clubs o r organizations such as yarsanism groups, unions, fraL-3 [employer] or athletic groups, or school groups? No [...] Score 0 05/09/2023 [facility]at ionnv Health - Occupational Stress [...] Office Visit [facility] [address] [place] [address] Jared Linda DO [address] [place] [address] documented as of this encounter Visit Diagnoses Not on filedocumented in this encounter Care Teams Vault Cashier Relationship Specialty Start Date End Date Arsalan Díaz MD [address] [place] [address] PCP - General Family Medicine 05/08/23 Maricarmen Jj NP [address] [place] [address] Nurse Practitioner Family Medicine 04/14/25 documented as of this encounter
[2025-05-05 12:29] LABS: Basophils Percent Auto 0.7 % (0.2-2.0); Eosinophils Absolute Auto 0.1 10^3/uL (0.0-0.7); Eosinophils Percent Auto 2.4 % (0.9-7.0); Hemoglobin 14.9 g/dL (14.0-18.0); Lymphocytes Absolute Auto 0.9 10^3/uL (1.2-3.8); Lymphocytes Percent Auto 19.4 % (20.5-60.0); Mean Corpuscular HGB Conc 34.7 g/dL (29.9-35.2); Mean Corpuscular Hemoglobin 29.8 pg (25.9-34.0); Mean Platelet Volume 10.1 fL (9.5-13.5); Monocytes Absolute Auto 0.6 10^3/uL (0.3-0.8); Neutrophils Percent Auto 65.5 % (43.0-75.0); Platelet Count 180 10^3/uL (150-450); Red Cell Distribution Width 12.9 % (11.0-15.0); White Blood Count 4.6 10^3/uL (4.0-11.0)
[2025-05-05 13:09] LABS: Alanine Aminotransferase 21 U/L (16-63); Albumin Globulin Ratio 1.1; Albumin Level 3.7 g/dL (3.4-5.0); Alkaline Phosphatase 51 U/L (46-116); Anion Gap 15.6; Aspartate Amino Transferase 19 U/L (15-37); BUN Creatinine Ratio 19.3; Bilirubin Total 1.3 mg/dL (0.2-1.0); Calcium 9.1 mg/dL (8.5-10.1); Carbon Dioxide 24.9 mmol/L (21.0-32.0); Chloride 104 mmol/L (98-107); Chol HDL Ratio 1.9; Cholesterol 187 mg/dL (<=200); Estimated GFR (African America >60 (>=60 mL/min/1.73m^2); Estimated GFR (Non-African Ame >60 (>=60 mL/min/1.73m^2); Globulin 3.4 g/dL; Glucose 91 mg/dL (74-106); HDL Cholesterol 97 mg/dL (40-60); Potassium 4.5 mmol/L (3.5-5.1); Sodium 140 mmol/L (136-145); Thyroid Stimulating Hormone 3.293 uIU/mL (0.358-3.740); Total Protein 7.1 g/dL (6.4-8.2); Triglycerides 79 mg/dL (<=150); VLDL CHOLESTEROL 15.8 mg/dL
[2025-05-05 14:29] LABS: Prostate Specific Antigen Scrn 1.06 ng/mL (<=4.00)
[2025-05-05 14:40] LABS: Free T4 0.91 ng/dL (0.76-1.46)
[2025-05-06 06:09] LABS: Vitamin B12 655 pg/mL (232-1245)
== END 2025-05-05 11:33 | disposition home or self-care (01) ==
LOC: LAB 11:46
PROVIDERS: Family Provider Family Medicine; PCP Family Medicine; Visit Provider Nurse Practitioner
DX: E78.2 Mixed hyperlipidemia (principal); Z13.220 Encounter for screening for lipoid disorders; F41.1 Generalized anxiety disorder; Z13.21 Encounter for screening for nutritional disorder; E53.8 Deficiency of other specified B group vitamins; E55.9 Vitamin D deficiency, unspecified; N40.0 Benign prostatic hyperplasia without lower urinary tract symptoms; Z12.5 Encounter for screening for malignant neoplasm of prostate; Z13.29 Encounter for screening for other suspected endocrine disorder
CPT/HCPCS: 36415; 80053; 80061; 82306; 82607; 83735; 84439; 84443; 85025; G0103